=== PATIENT | male | born 1980 | race African-American/Black ===

== ENCOUNTER 2019-03-31 10:10 | Emergency (ER) | payer MEDICAID, SELFPAY ==
[2019-03-31 10:12] VITALS: BP 120/93; PULSE 98; RESP 20; TEMP 36.8; O2SAT 97; BMI 67.1
--- NOTE | 2019-03-31 10:22 | ED.VIS.GEN ---
History of Present Illness Chief Complaint: Eye Problem Informant: Patient Onset: Days Narrative: Patient reports erythema, swelling, itching, and drainage from bilateral eyes. He states that about a week ago he developed rhinorrhea and sneezing. He was having some itchy watery eyes, however over the last several days he has developed the conjunctival injection and swelling of his eyelids. He states the drainage is mostly clear, however he has noted some more purulent aspects. He did have this once about a year ago and states that antihistamines helped to this. He denies any pain with ocular movement. He denies any fever, chills, nausea, vomiting. He denies any changes in vision. Past Medical History - Allergies and Home Meds Allergies/Adverse Reactions: Allergies No Known Allergies Allergy (Verified 03/31/19 10:12) Primary Care Physician: Julieth Doctor,Out of [NON-STAFF] - Smoking Status: Former smoker - Family History Maternal Family History: Reports: Diabetes Review of Systems General: Denies: Chills, Fever, Sweats Eyes: Reports: - - Conjunctival injection, drainage, eyelid swelling.. Denies: Visual changes - bilaterally, Diplopia ENT: Reports: Rhinorrhea, - - Sneezing. Denies: Sore throat Cardiovascular: Denies: Chest pain, Palpitations Respiratory: Denies: Dyspnea, Cough, Dyspnea on exertion Gastrointestinal: Denies: Abdominal pain, Nausea, Vomiting, Diarrhea, Melena, Hematochezia Genitourinary: Denies: Dysuria, Hematuria, Frequency Musculoskeletal: Denies: Back pain, Extremity Pain Skin: Denies: Rash, Wounds Neurological: Denies: Headache, Weakness, Numbness Physical Exam Vital Signs/Narrative: Vital Signs Temp Pulse Resp BP Pulse Ox 03/31/19 10:12 98.2 F 98 20 H 120/93 H 97 General: Well nourished, Well developed, No Acute Distress Head: Normocephalic, Atraumatic Eyes: Perrl, EOMI, - - Edema bilateral upper and lower eyelids. Conjunctival injection. Clear drainage from bilateral eyes with small amount of purulent drainage to the corner of the eyes. Extraocular movement is intact. Patient denies any pain with extraocular movement. ENT: Moist mucous membranes, No rhinorrhea Neck: Supple, Nontender Cardiovascular: Regular rate, Regular rhythm, No murmurs Respiratory: No distress, CTA bilaterally, Chest nontender Abdomen: Soft, Nontender, Nondistended, Normal bowel sounds Back: Nontender, Normal Inspection Extremities: Nontender, No edema Skin: Normal color, No rash Neurological: Alert, Oriented x3, Cranial nerves II-XII grossly intact, Normal Strength, Normal Sensation Psychological: Normal affect, Normal Mood Diagnostic/Tx/Re-eval - Medical Decision Making Patient presents to the ED with eye irritation for the last several days. he has had this in the past. Following history and physical exam, I think the main component of the patient's conjunctivitis is allergic, however given the small amount of purulent drainage I do feel coverage with antibiotic ophthalmic drops would be appropriate. Patient will be prescribed antibiotic ophthalmic drops and Claritin for symptomatic relief. He was educated on signs/symptoms to return to the ED. He was advised to follow-up with his PCP. He was provided discharge instructions and agreeable to plan. Impression: Allergic conjunctivitis. Bacterial conjunctivitis. Disposition: Home stable ED Disposition - Plan for ED Patient: Disposition: Home or Assisted Living Diagnosis: Allergic conjunctivitis, Bacterial conjunctivitis of both eyes Instructions: CONJUNCTIVITIS, Allergic, CONJUNCTIVITIS, Bacterial Prescriptions: Loratadine [Claritin] 10 mg PO DAILY #30 tab Prescription Printed Polymyxin B Sulf/Trimethoprim [Polymyxin B-Tmp Eye Drops] 2 drp EACH EYE 5X/DAY #1 bottle Prescription Printed Referrals: [facility] Doctor,Out of [NON-STAFF] -
== END 2019-03-31 11:05 | disposition home or self-care (01) ==
LOC: ED 10:57
PROVIDERS: Emergency Provider Physician Assistant
DX: H10.13 Acute atopic conjunctivitis, bilateral (principal); H10.89 Other conjunctivitis; Z87.891 Personal history of nicotine dependence
CPT/HCPCS: 99282

== ENCOUNTER 2020-02-05 18:43 | Emergency (ER) | payer MEDICAID, SELFPAY ==
[2020-02-05 18:44] VITALS: BP 152/69; PULSE 113; RESP 30; TEMP 35.9; BMI 78.0
--- NOTE | 2020-02-05 20:19 | ED.VIS.GEN ---
History of Present Illness Chief Complaint: Wound Informant: Patient Onset: Days Context: Sudden Onset Timing: Continuous Quality: Wounds dorsal surface right and left foot with clear drainage Location: Feet Current Severity: Mild Maximum Severity: Mild Worsened by: Lymphedema and scratching Relieved by: Nothing Associated Symptoms: Neuropathy Narrative: Rash that is pruritic and painful with drainage from the top of his feet. The drainage concerned patient. He attempted to do a online medical examination which was unsuccessful. He attempted to be seen at the [facility]. He was instructed to come here because they would not see him. He denies fever, chills night sweats. He denies orthopnea or PND. He denies chest pain. He denies dyspnea on exertion. He does have history of lymphedema. Prior similar symptoms: No Recent Illness/Hospitalization: No - Past Medical History (1) Diabetes Status: Acute (2) Hypertension Status: Acute (3) Morbid obesity Status: Acute (4) Sleep disorder breathing Status: Acute Past Medical History - Allergies and Home Meds Allergies/Adverse Reactions: Allergies No Known Allergies Allergy (Verified 03/31/19 10:12) Primary Care Physician: Care Physician,No Primary [Primary Care Provider] - Prior records reviewed: Yes Surgical History: noncontributory Lives: Alone Smoking Status: Former smoker Alcohol: None Drugs: None - Family History Maternal Family History: Reports: Diabetes Review of Systems General: Denies: Chills, Fever, Sweats Eyes: Denies: Visual changes - bilaterally, Diplopia ENT: Denies: Rhinorrhea, Sore throat Cardiovascular: Denies: Chest pain, Palpitations Respiratory: Denies: Dyspnea, Cough, Dyspnea on exertion Gastrointestinal: Denies: Abdominal pain, Nausea, Vomiting, Diarrhea, Melena, Hematochezia Genitourinary: Denies: Dysuria, Hematuria, Frequency Musculoskeletal: Reports: Neck pain, Back pain, Swelling, Extremity Pain. Denies: Myalgias, Arthralgias Skin: Reports: Rash, - - And has venous stasis dermatitis and areas of excoriation with weepage of serous fluid. There is no erythema, warmth, lymphangitis. There is no popliteal lymphadenopathy. Difficult to assess for inguinal lymphadenopathy. Neurological: Denies: Headache, Weakness, Numbness Hematologic: Denies: Easy bruising, Easy bleeding Allergy: Denies: Uticaria, Swelling of the mouth, Swelling of the tongue Physical Exam Vital Signs/Narrative: Vital Signs Temp Pulse Resp BP 02/05/20 18:44 96.6 F L 113 H 30 H 152/69 H General: Well nourished, Well developed, Obese, No Acute Distress Head: Normocephalic, Atraumatic Eyes: Perrl, EOMI ENT: Moist mucous membranes, No rhinorrhea Neck: Supple, Nontender, No lymphadenopathy, No JVD Cardiovascular: Regular rate, Regular rhythm, No murmurs, Normal S1, Normal S2 Respiratory: No distress, CTA bilaterally, Chest nontender Extremities: Tenderness, Edema Skin: Normal color, Rash. Negative for: Cyanosis, Diaphoresis, Jaundice Neurological: Alert, Oriented x3, Cranial nerves II-XII grossly intact, Normal Strength, Normal Sensation Psychological: Normal affect, Normal Mood Diagnostic/Tx/Re-eval Laboratory Results 02/05/20 02/05/20 20:20 20:20 WBC 10.6 RBC 4.33 L Hgb 13.4 Hct 39.9 L MCV 92.1 MCH 30.9 MCHC 33.6 RDW Std Deviation 51.6 H RDW Coeff of Ashanti 15.3 H Plt Count 263 MPV 9.6 Immature Gran % (Auto) 0.300 Neut % (Auto) 73.8 H Lymph % (Auto) 19.0 [place] % (Auto) 6.0 Eos % (Auto) 0.7 Baso % (Auto) 0.2 Absolute Neuts (auto) 7.8 H Absolute Lymphs (auto) 2.01 Nucleated RBC % 0 Sodium 140 Potassium 3.8 Chloride 106 Carbon Dioxide 28.0 Anion Gap 6 BUN 7 Creatinine 0.83 Estim Creat Clear Calc 128.55 Est GFR (MDRD) Af Amer 132 Est GFR (MDRD) Non-Af 109 BUN/Creatinine Ratio 8.5 L Glucose 172 H Calcium 8.8 White count is normal. Blood sugar is elevated. He is a known diabetic. There is no evidence of DKA. Patient was informed of his test results and discharged home with appropriate home-going instructions. - Medical Decision Making Patient is diabetic basic metabolic panel was obtained to assess blood sugar, renal function and anion gap. CBC was obtained to determine if he has an elevated white count. If white count is normal we will treat for venous stasis dermatitis if white count is significant elevated will treat for possible early cellulitis. ED Disposition - Plan for ED Patient: Disposition: Home or Assisted Living Diagnosis: Lymphedema in adult patient, Psoriasis, Venous stasis dermatitis of both lower extremities, Hyperglycemia due to type 2 diabetes mellitus Instructions: ED Peripheral Edema, Bilateral, ED Psoriasis, ED Diabetic Hyperglycemia Referrals: Care Physician,No Primary [Primary Care Provider] - Additional Instructions: Apply Eucerin cream/lotion 3 times a day to your feet Try not to scratch your feet. Elevation of your feet will reduce the swelling.
[2020-02-05 20:30] LABS: Absolute Lymphocyte Count 2.01 X10^3/uL (0.83-4.51); Absolute Neutrophil Count 7.8 X10^3/uL (2.0-7.7); Basophil# 0.02 X10^3/uL; Basophil% 0.2 % (0-1); Eosinophil# 0.07 X10^3/uL; Eosinophils% 0.7 % (0-5); Hematocrit 39.9 % (40-54); Hemoglobin 13.4 g/dL (13.0-16.5); Lymphocyte # 2.01 X10^3/ul (4.0); Mean Corp Hgb Conc 33.6 g/dL (32-36); Mean Corpuscular Hgb 30.9 pg (27.0-32.0); Mean Corpuscular Volume 92.1 fL (80-94); Mean Platelet Vol. 9.6 fl (6.2-12.0); Monocyte# 0.64 X10^3/uL; NRBC Flagged by Analyzer 0 % (0-5); Neutrophil # 7.83 X10^3/uL (2.7-7.7); Neutrophil % 73.8 % (47-70); Platelet Count 263 K/mm3 (150-450); RBC Distribution Width CV 15.3 % (11.6-14.6); RBC Distribution Width SD 51.6 fl (35.1-43.9); Red Blood Count 4.33 M/mm3 (4.6-6.2); White Blood Count 10.6 K/mm3 (4.4-11.0)
[2020-02-05 20:44] LABS: Anion Gap 6 (5-15); BUN 7 mg/dL (7-18); BUN/Creat Ratio 8.5 RATIO (10-20); Calcium,Total 8.8 mg/dL (8.5-10.1); Chloride 106 mmol/L (98-107); Creatinine, Serum 0.83 mg/dL (0.70-1.30); EST Glomerular Filtration Rate 109 mL/min (>60); Est Glom Filt Rate - Afr Amer 132 mL/min (>60); Estimated Creatinine Clearance 128.55 ml/min; Glucose 172 mg/dL (74-106); Potassium 3.8 mmol/L (3.5-5.1); Sodium Level 140 mmol/L (136-145)
[2020-02-05 21:35] VITALS: BP 163/95; PULSE 98; RESP 24; O2SAT 96
== END 2020-02-05 21:36 | disposition home or self-care (01) ==
PROVIDERS: Emergency Provider Emergency Medicine
DX: I89.0 Lymphedema, not elsewhere classified (principal); L40.9 Psoriasis, unspecified; E11.65 Type 2 diabetes mellitus with hyperglycemia; E66.01 Morbid (severe) obesity due to excess calories; I10 Essential (primary) hypertension; I87.2 Venous insufficiency (chronic) (peripheral); Z87.891 Personal history of nicotine dependence
CPT/HCPCS: 80048; 85025; 99283; A4216

== ENCOUNTER 2020-05-03 09:09 | Observation (INO) | payer MEDICAID, SELFPAY ==
[2020-05-03] VITALS (8 sets, daily range): BP systolic 86–150; BP diastolic 56–93; PULSE 63–105; RESP 16–22; TEMP 36–36.8; O2SAT 93–100; BMI 62.1; BMI 67.9
[2020-05-03 09:41] LABS: Bedside Glucose > 500 mg/dL (70-110)
--- NOTE | 2020-05-03 09:55 | EKG12_ITS ---
Test Reason : WEAKNESS Blood Pressure : / mmHG Vent. Rate : 102 BPM Atrial Rate : 102 BPM P-R Int : 144 ms QRS Dur : 090 ms QT Int : 356 ms P-R-T Axes : 067 084 036 degrees QTc Int : 463 ms Sinus tachycardia Otherwise normal ECG Confirmed by CHECO MCDERMOTT, RAVEN ([id number]), restaurant expeditor RIKY HAZEL ([id number]) on 05/05/2020 11:25:25 AM Referred By: SHAUNA Confirmed By:RAVEN KESSLER MD
--- NOTE | 2020-05-03 09:56 | ED.VIS.GEN ---
History of Present Illness Chief Complaint: Weakness Narrative: Patient is a 39-year-old male who presents with multiple complaints. He complains of fatigue polyuria polydipsia and generalized malaise for the last couple of weeks. He is a diabetic on metformin. He is not on insulin. He ran out of materials for testing his blood sugar at home. He states that he has been very thirsty lately so had drank a case of water. He was still thirsty so drank a gallon of orange juice on another day and then a 2 L of cola on another day. He also complains of nausea and vomiting. No diarrhea. No fever no cough. Past Medical History - Allergies and Home Meds Allergies/Adverse Reactions: Allergies No Known Allergies Allergy (Verified 05/03/20 09:10) Primary Care Physician: [facility] Doctor,Out of [NON-STAFF] - Past Medical History: - - Morbid obesity, diabetes, hypertension, hyperlipidemia Surgical History: noncontributory Smoking Status: Current some day smoker - Family History Maternal Family History: Reports: Diabetes Review of Systems All systems negative except as indicated General: Denies: Fever Eyes: Reports: Diplopia ENT: Denies: Bilateral ear pain Cardiovascular: Denies: Chest pain Respiratory: Denies: Dyspnea Gastrointestinal: Reports: Nausea, Vomiting. Denies: Abdominal pain Musculoskeletal: Denies: Myalgias, Arthralgias Skin: Denies: Rash Neurological: Denies: Headache Endocrine: Reports: Polyuria, Polydipsia Hematologic: Denies: Easy bruising Allergy: Denies: Uticaria Physical Exam Vital Signs/Narrative: Vital Signs Temp Pulse Resp BP Pulse Ox 05/03/20 09:35 105 H 22 H 96 05/03/20 09:11 96.8 F L 105 H 17 143/75 H 94 Inital Vital Signs reviewed: Yes General: Well nourished Head: Normocephalic Eyes: EOMI ENT: Moist mucous membranes Neck: Supple Cardiovascular: Regular rhythm, Tachycardia Respiratory: No distress, CTA bilaterally Abdomen: Soft, Nontender, Nondistended Skin: Normal color Neurological: Alert Psychological: Normal affect Diagnostic/Tx/Re-eval Laboratory Results 05/03/20 05/03/20 05/03/20 09:20 09:35 09:35 WBC 14.3 H RBC 4.99 Hgb 15.4 Hct 43.9 MCV 88.0 MCH 30.9 MCHC 35.1 RDW Std Deviation 41.3 RDW Coeff of Ashanti 13.2 Plt Count 264 MPV 12.2 H Immature Gran % (Auto) 0.400 Neut % (Auto) 71.4 H Lymph % (Auto) 18.0 L [place] % (Auto) 9.3 Eos % (Auto) 0.6 Baso % (Auto) 0.3 Absolute Neuts (auto) 10.2 H Absolute Lymphs (auto) 2.56 Nucleated RBC % 0 Specimen Type Sample Site pH Bicarbonate Actual Total CO2 Base Excess O2 Saturation ABG pCO2 ABG pO2 Eran Test O2 Delivery Device Sodium 124 L Potassium 5.0 Chloride 85 L Carbon Dioxide 26.0 Anion Gap 13 BUN 22 H Creatinine 1.53 H Estim Creat Clear Calc 69.74 Est GFR (MDRD) Af Amer 65 Est GFR (MDRD) Non-Af 53 L BUN/Creatinine Ratio 14.4 Glucose 742 H* Calcium 9.6 Total Bilirubin 0.40 Direct Bilirubin 0.15 AST 12 L ALT 30 Alkaline Phosphatase 140 H Total Protein 8.4 H Albumin 3.1 L Globulin 5.3 H Albumin/Globulin Ratio 0.6 L Lipase 111 Urine Color Urine Clarity Urine pH Ur Specific [place] Urine Protein Urine Glucose (UA) Urine Ketones Urine Occult Blood Urine Nitrite Urine Bilirubin Urine Urobilinogen Ur Leukocyte Esterase Urine RBC Urine WBC Ur Squamous Epith Cells Urine Bacteria Urine Mucus Acetone Level POC Glucose > 500 H* 05/03/20 05/03/20 05/03/20 09:35 09:35 09:35 WBC RBC Hgb Hct MCV MCH MCHC RDW Std Deviation RDW Coeff of Ashanti Plt Count MPV Immature Gran % (Auto) Neut % (Auto) Lymph % (Auto) [place] % (Auto) Eos % (Auto) Baso % (Auto) Absolute Neuts (auto) Absolute Lymphs (auto) Nucleated RBC % Specimen Type Sample Site pH Bicarbonate Actual Total CO2 Base Excess O2 Saturation ABG pCO2 ABG pO2 Eran Test O2 Delivery Device Sodium Potassium Chloride Carbon Dioxide Anion Gap BUN Creatinine Estim Creat Clear Calc Est GFR (MDRD) Af Amer Est GFR (MDRD) Non-Af BUN/Creatinine Ratio Glucose Calcium Total Bilirubin Cancelled Direct Bilirubin Cancelled AST Cancelled ALT Cancelled Alkaline Phosphatase Cancelled Total Protein Cancelled Albumin Cancelled Globulin Cancelled Albumin/Globulin Ratio Lipase Cancelled Urine Color Urine Clarity Urine pH Ur Specific [place] Urine Protein Urine Glucose (UA) Urine Ketones Urine Occult Blood Urine Nitrite Urine Bilirubin Urine Urobilinogen Ur Leukocyte Esterase Urine RBC Urine WBC Ur Squamous Epith Cells Urine Bacteria Urine Mucus Acetone Level NEGATIVE POC Glucose 05/03/20 05/03/20 11:10 11:10 WBC RBC Hgb Hct MCV MCH MCHC RDW Std Deviation RDW Coeff of Ashanti Plt Count MPV Immature Gran % (Auto) Neut % (Auto) Lymph % (Auto) [place] % (Auto) Eos % (Auto) Baso % (Auto) Absolute Neuts (auto) Absolute Lymphs (auto) Nucleated RBC % Specimen Type ART Sample Site R Radial pH 7.47 H Bicarbonate Actual 25.2 Total CO2 26 Base Excess 1 O2 Saturation 99 ABG pCO2 35.0 ABG pO2 113 H Eran Test Positive O2 Delivery Device Room Air Sodium Potassium Chloride Carbon Dioxide Anion Gap BUN Creatinine Estim Creat Clear Calc Est GFR (MDRD) Af Amer Est GFR (MDRD) Non-Af BUN/Creatinine Ratio Glucose Calcium Total Bilirubin Direct Bilirubin AST ALT Alkaline Phosphatase Total Protein Albumin Globulin Albumin/Globulin Ratio Lipase Urine Color Yellow Urine Clarity Clear Urine pH 5.0 Ur Specific [place] 1.010 Urine Protein Negative Urine Glucose (UA) 1000 H Urine Ketones Negative Urine Occult Blood Negative Urine Nitrite Negative Urine Bilirubin Negative Urine Urobilinogen Normal Ur Leukocyte Esterase Negative Urine RBC 0 SEEN Urine WBC 0 SEEN Ur Squamous Epith Cells 0 SEEN Urine Bacteria 0 SEEN Urine Mucus 0 SEEN Acetone Level POC Glucose - Medical Decision Making EKG shows sinus tachycardia at a rate of 102. Patient was treated with IV fluids. Laboratory evaluation as above notable for severe hyperglycemia however pH anion gap are normal. Serum acetone is negative. He does have an acute kidney injury. He was given IV fluids and subcutaneous insulin discussed with the hospitalist and admitted. ED Disposition - Plan for ED Patient: Disposition: Acute Care Hospital [facility] Diagnosis: Hyperglycemia, MOISES (acute kidney injury) Referrals: [facility] Doctor,Out of [NON-STAFF] -
[2020-05-03 10:11] LABS: Absolute Lymphocyte Count 2.56 X10^3/uL (0.83-4.51); Absolute Neutrophil Count 10.2 X10^3/uL (2.0-7.7); Basophil# 0.04 X10^3/uL; Basophil% 0.3 % (0-1); Eosinophil# 0.08 X10^3/uL; Eosinophils% 0.6 % (0-5); Hematocrit 43.9 % (40-54); Hemoglobin 15.4 g/dL (13.0-16.5); Lymphocyte # 2.56 X10^3/ul (4.0); Mean Corp Hgb Conc 35.1 g/dL (32-36); Mean Corpuscular Hgb 30.9 pg (27.0-32.0); Mean Platelet Vol. 12.2 fl (6.2-12.0); Monocyte# 1.33 X10^3/uL; Monocyte% 9.3 % (0-10); NRBC Flagged by Analyzer 0 % (0-5); Neutrophil # 10.19 X10^3/uL (2.7-7.7); Neutrophil % 71.4 % (47-70); Platelet Count 264 K/mm3 (150-450); RBC Distribution Width CV 13.2 % (11.6-14.6); RBC Distribution Width SD 41.3 fl (35.1-43.9); Red Blood Count 4.99 M/mm3 (4.6-6.2); White Blood Count 14.3 K/mm3 (4.4-11.0)
[2020-05-03] MEDS: Ondansetron 4 MG/2 ML Vial IV (10:15)
[2020-05-03] MEDS: 0.9% Normal Saline 1,000 ML 999 ML IV ×2 (10:17→11:16)
[2020-05-03 10:28] LABS: ALB/GLOB Ratio 0.6 RATIO (0.9-2.4); AST(SGOT) 12 U/L (15-37); Alanine Aminotransfer ALT/SGPT 30 U/L (16-61); Albumin, Serum 3.1 g/dL (3.2-5.0); Alkaline Phosphatase 140 U/L (45-117); Anion Gap 13 (5-15); BUN 22 mg/dL (7-18); BUN/Creat Ratio 14.4 RATIO (10-20); Calcium,Total 9.6 mg/dL (8.5-10.1); Chloride 85 mmol/L (98-107); Creatinine, Serum 1.53 mg/dL (0.70-1.30); EST Glomerular Filtration Rate 53 mL/min (>60); Est Glom Filt Rate - Afr Amer 65 mL/min (>60); Estimated Creatinine Clearance 69.74 ml/min; Globulin 5.3 g/dL (2.2-4.2); Glucose 742 mg/dL (74-106); Lipase 111 U/L (73-393); Protein, Total 8.4 g/dL (6.4-8.2); Sodium Level 124 mmol/L (136-145)
[2020-05-03 11:13] LABS: Bilirubin, Direct 0.15 mg/dL (0.00-0.30)
[2020-05-03 11:16] LABS: Allen Test Positive; Base Excess 1 mmol/L (-2 to +2); Bicarbonate 25.2 mmol/L (22-26); Blood Gas Specimen Type ART; O2 Delivery Device Room Air; PO2 113 mmHG (75-100); SITE R Radial; SO2 99 % (95-99); Total Carbon Dioxide 26 mmol/L; pH 7.47 (7.35-7.45)
[2020-05-03 11:17] LABS: Bacteria 0 SEEN /hpf (None Seen); Mucous, Urine 0 SEEN /hpf (<or=2+); Red Blood Cells-Urine 0 SEEN /hpf (0-5); Squamous Epithelial Cells - UA 0 SEEN /hpf (0-5); White Blood Cells 0 SEEN /hpf (0-5)
[2020-05-03] MEDS: Insulin Lispro 100 UNIT/ML INSULN.PEN 14 UNIT SC (11:20)
[2020-05-03 11:21] LABS: Color, Urine Yellow (Yellow); Glucose, Dipstick 1000 mg/dl (Normal); Ketone-Dipstick Negative (Negative); Leukocyte Esterase-Dipstick Negative /ul (Negative); Nitrite-Dipstick Negative (Negative); Occult Blood-Urine Negative /ul (Negative); Protein-Dipstick Negative (Negative); Urine Bilirubin Dipstick Negative (Negative); Urine Clarity Clear (Clear); Urine Urobilinogen Normal (Normal)
[2020-05-03 14:00] LABS: Hemoglobin A1c 11.2 % (3.8-5.6)
--- NOTE | 2020-05-03 14:13 | PCM.HP.STD ---
<Bipin German - Last Filed: 05/03/20 14:13> Problem List (1) Diabetes Status: Acute Qualifiers: Diabetes mellitus type: type 2 Diabetes mellitus complication status: with hyperglycemia (2) MOISES (acute kidney injury) Status: Acute (3) Sleep disorder breathing Status: Chronic (4) Hypertension Status: Chronic (5) Morbid obesity Status: Chronic History of Present Illness Date of Admission: 05/03/20 Chief Complaint: thirst The patient is a 39 year old M with pmhx of Dmt2, morbid obesity, htn, hld, sleep disordered breathing, prior smoker, who presented to the ER with c/o severe thirst and found to have severe hyperglycemia and MOISES. The patient has not been taking his home metformin or glyburide for unclear reasons stating it had something to do with not being able to figure out how to have a video visit with his prescribing doctor. At one point he said he was off these for 2 weeks, at another point he said it has been 4 months. He has not checked his sugar in about 2.5 weeks. He states he does not have the right strips for his glucometer. He started feeling generalized malaise about 2.5 weeks ago after a night of heavy drinking. He became intoxicated following a friends , tho he denies daily alcohol use. He then developed severe thirst that has progresively worsening. In the past two days he has drank a case of water, a gallon of milk, a gallon of juice, in an attempt to help with his thirst. He thought his sugar might be low so he drank multiple sodas to see if it would help. He has had some nausea and vomiting today. He came to the ER and was found to have a glucose of 742 however has normal gap and negative acetone. No breathing issues at this time. [] Past Medical History Past Medical History (Chronic Problems): Chronic Problems Sleep disorder breathing (Chronic) Hypertension (Chronic) Morbid obesity (Chronic) Allergies No Known Allergies Allergy (Verified 05/03/20 09:10) Home Medications: Ambulatory Orders Medication Instructions Recorded Lisinopril [Zestril] 20 mg PO DAILY #90 tablet 04/17/16 glyBURIDE [Micronase] 5 mg PO BIDCM #90 tablet 04/17/16 Loratadine [Claritin] 10 mg PO DAILY #30 tab 03/31/19 Atorvastatin Calcium [Lipitor] 20 mg PO QHS 05/03/20 Metformin HCl 1,000 mg PO BID 05/03/20 Surgical History: - - shoulder surgery Psychiatric History: No pertinent psych hx Lives: With Family Smoking Status: Former smoker Tobacco Use: Non-smoker Alcohol: Occasional Drugs: None - *Family History Maternal History Items: Diabetes, - - thyroid Paternal History Items: Hypertension Review of Systems Constitutional: Reports: Malaise, Fatigue. Denies: Chills, Fever, Weight Change HEENT: Denies: Hard of Hearing, Head Aches, Sinus Congestion, Sinus Drainage Cardiovascular: Denies: Chest Pain, Heaviness, Palpitations Respiratory: Denies: Cough, Shortness of Breath, Shortness of breath at rest, Sputum production Gastrointestinal: Reports: Nausea, Vomiting. Denies: Abdominal Pain, Diarrhea Genitourinary: Denies: Dysuria, Hesitancy, Urgency Musculoskeletal: Denies: Joint Pain, Joint Tenderness Skin: Denies: Lesions, Rash, Wounds Neurological: Denies: Numbness, Tingling, Focal weakness Psychiatric: Denies: Anxiety, Depression, Homicidal Ideations, Suicidal Ideations Hematologic/ Lymphatic: Denies: Easy Bruising, Easy Bleeding VTE Information - Inpt Only VTE Present on Admission: No VTE Mechan Device Prophylaxis: None VTE Pharm Prophylaxis ordered?: Yes Patient Problems: Active and Suspected Problems Hyperglycemia (Acute) MOISES (acute kidney injury) (Acute) Diabetes (Acute) - Physical Exam Vitals/I&O's: Vital Signs Temp Pulse Resp BP Pulse Ox 97.8 F 100 18 86/56 L 93 05/03/20 13:08 05/03/20 13:40 05/03/20 13:08 05/03/20 13:08 05/03/20 13:08 Oxygen Delivery Method Room Air Weight: 500 lb 14.244 oz Body Mass Index (BMI) 67.9 Finger Stick Blood Glucose 214 Intake and Output for Last 24 Hours 05/01/20 05/02/20 05/03/20 23:59 23:59 22:59 Intake Total 1999 Balance 1999 General: Alert, Oriented x3, Cooperative HEENT: Atraumatic, PERRLA, EOMI, Normocephalic Neck: Supple, No JVD, Negative Carotid Bruits Lungs: Clear to auscultation, Normal air movement Cardiovascular: Regular rate, No murmurs Abdomen: Bowel Sounds Present, Soft, Non Tender, Obese Extremities: No edema, Capillary Refill Less than 3 Seconds Skin: No rashes, No breakdown Musculoskeletal: No Tenderness to Palpation of Joints or Extremities Neurological: Cranial nerves II-XII grossly intact Psych/Mental Status: Normal Affect, Appropriate Laboratory Results 05/03/20 09:20: POC Glucose > 500 H* 05/03/20 09:35: WBC 14.3 H, RBC 4.99, Hgb 15.4, Hct 43.9, MCV 88.0, MCH 30.9, MCHC 35.1, RDW Std Deviation 41.3, RDW Coeff of Ashanti 13.2, Plt Count 264, MPV 12.2 H, Immature Gran % (Auto) 0.400, Neut % (Auto) 71.4 H, Lymph % (Auto) 18.0 L, Door % (Auto) 9.3, Eos % (Auto) 0.6, Baso % (Auto) 0.3, Absolute Neuts (auto) 10.2 H, Absolute Lymphs (auto) 2.56, Nucleated RBC % 0 05/03/20 09:35: Sodium 124 L, Potassium 5.0, Chloride 85 L, Carbon Dioxide 26.0, Anion Gap 13, BUN 22 H, Creatinine 1.53 H, Estim Creat Clear Calc 69.74, Est GFR (MDRD) Af Amer 65, Est GFR (MDRD) Non-Af 53 L, BUN/Creatinine Ratio 14.4, Glucose 742 H*, Calcium 9.6, Total Bilirubin 0.40, Direct Bilirubin 0.15, AST 12 L, ALT 30, Alkaline Phosphatase 140 H, Total Protein 8.4 H, Albumin 3.1 L, Globulin 5.3 H, Albumin/Globulin Ratio 0.6 L, Lipase 111 05/03/20 09:35: Acetone Level NEGATIVE 05/03/20 09:35: Total Bilirubin Cancelled, Direct Bilirubin Cancelled, AST Cancelled, ALT Cancelled, Alkaline Phosphatase Cancelled, Total Protein Cancelled, Albumin Cancelled, Globulin Cancelled 05/03/20 09:35: Lipase Cancelled 05/03/20 09:35: Hemoglobin A1c 11.2 H 05/03/20 11:10: Urine Color Yellow, Urine Clarity Clear, Urine pH 5.0, Ur Specific [place] 1.010, Urine Protein Negative, Urine Glucose (UA) 1000 H, Urine Ketones Negative, Urine Occult Blood Negative, Urine Nitrite Negative, Urine Bilirubin Negative, Urine Urobilinogen Normal, Ur Leukocyte Esterase Negative, Urine RBC 0 SEEN, Urine WBC 0 SEEN, Ur Squamous Epith Cells 0 SEEN, Urine Bacteria 0 SEEN, Urine Mucus 0 SEEN 05/03/20 11:10: Specimen Type ART, Sample Site R Radial, pH 7.47 H, Bicarbonate Actual 25.2, Total CO2 26, Base Excess 1, O2 Saturation 99, ABG pCO2 35.0, ABG pO2 113 H, Eran Test Positive, O2 Delivery Device Room Air Current Medications Dextrose (Dextrose 50%-Water 25 Gm/50 Ml Disp.Syrin) 0 gm IV X1 PRN; Protocol PRN Reason: Hypoglycemia Enoxaparin Sodium (Enoxaparin 40 Mg/0.4 Ml Syringe) 40 mg SC DAILY PRATIBHA Glucagon (Glucagon 1 Mg/Ml Syringe) 1 mg IM .X1 PRN PRN Reason: Hypoglycemia Sodium Chloride () 1,000 mls @ 150 mls/hr IV .Q6H40M PRATIBHA Sodium Chloride () 250 mls @ 15 mls/hr IV .[id number] PRN PRN Reason: Saline Flush Influenza Virus Vaccine Quadrival (Influenza Vaccine (6mos+)/Pf 0.5 Ml Syringe) 0.5 ml IM .ONCE ONE Stop: 05/04/20 10:01 Insulin Glargine (Insulin Glargine 100 Units/Ml Pen) 10 units SC QHS PRAT[facility] Insulin Human Lispro (Insulin Lispro 100 Unit/Ml Insuln.Pen) 5 unit SC BREAKFAST PRATIBHA Insulin Human Lispro (Insulin Lispro 100 Unit/Ml Insuln.Pen) 5 unit SC DINNER PRAT[facility] Insulin Human Lispro (Insulin Lispro 100 Unit/Ml Insuln.Pen) 5 unit SC LUNCH PRAT[facility] Insulin Human Lispro (Insulin Lispro 100 Unit/Ml Insuln.Pen) 0 unit SC ACHS PRATIB[facility]; Protocol Nutritional Formula (Lactose Free) (Glucerna Shake 120 Ml Liquid) 120 ml PO TIDCM PRATIBHA Ondansetron HCl (Ondansetron 4 Mg/2 Ml Vial) 4 mg IV Q8H PRN PRN PRN Reason: NAUSEA/VOMITING Sodium Chloride (0.9% Saline Lock 10 Ml Syringe) 10 - 40 ml IV UD PRN PRN Reason: SALINE FLUSH Assessment/Plan All Active Problems Hyperglycemia (Acute) MOISES (acute kidney injury) (Acute) Hyperosmolar hyperglycemic state (HHS) (Acute) Diabetes (Acute) 1. T2 DM with severe hyperglycemia - negative acetone, normal gap. No DKA at this time. pt has been off his home meds for an unclear amount of time. start lantus and TID mealtime insulin. out of test strips, has not tested recently. will need refills at dc. Large glucose in urine, no proteinuria. Hyponatremia probably pseudohyponatremia. 2. MOISES 2/2 above - severe dehydration complicated by nausea/vomiting. aggressive IV fluids overnight, recheck BMP in AM. Hold STACY. 3. HTN - hold stacy for MOISES. BP low at admission so will defer further treatment until pressure stabilizes. 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 HLD - statin DVT ppx: lovenox This patient was seen by Bipin German PA-C under the supervision of Dr. Peres. <Roman Peres F - Last Filed: 05/03/20 16:55> History of Present Illness The patient is a 39 year old M [] Past Medical History Allergies No Known Allergies Allergy (Verified 05/03/20 09:10) - Physical Exam Vitals/I&O's: Vital Signs Temp Pulse Resp BP Pulse Ox 98.2 F 94 18 150/93 H 95 05/03/20 15:00 05/03/20 15:00 05/03/20 15:00 05/03/20 15:00 05/03/20 15:00 Oxygen Delivery Method Room Air Weight: 500 lb 14.244 oz Body Mass Index (BMI) 67.9 Finger Stick Blood Glucose 214 Intake and Output for Last 24 Hours 05/01/20 05/02/20 05/03/20 23:59 23:59 22:59 Intake Total 1999 Balance 1999 Laboratory Results 05/03/20 09:20: POC Glucose > 500 H* 05/03/20 09:35: WBC 14.3 H, RBC 4.99, Hgb 15.4, Hct 43.9, MCV 88.0, MCH 30.9, MCHC 35.1, RDW Std Deviation 41.3, RDW Coeff of Ashanti 13.2, Plt Count 264, MPV 12.2 H, Immature Gran % (Auto) 0.400, Neut % (Auto) 71.4 H, Lymph % (Auto) 18.0 L, Door % (Auto) 9.3, Eos % (Auto) 0.6, Baso % (Auto) 0.3, Absolute Neuts (auto) 10.2 H, Absolute Lymphs (auto) 2.56, Nucleated RBC % 0 05/03/20 09:35: Sodium 124 L, Potassium 5.0, Chloride 85 L, Carbon Dioxide 26.0, Anion Gap 13, BUN 22 H, Creatinine 1.53 H, Estim Creat Clear Calc 69.74, Est GFR (MDRD) Af Amer 65, Est GFR (MDRD) Non-Af 53 L, BUN/Creatinine Ratio 14.4, Glucose 742 H*, Calcium 9.6, Total Bilirubin 0.40, Direct Bilirubin 0.15, AST 12 L, ALT 30, Alkaline Phosphatase 140 H, Total Protein 8.4 H, Albumin 3.1 L, Globulin 5.3 H, Albumin/Globulin Ratio 0.6 L, Lipase 111 05/03/20 09:35: Acetone Level NEGATIVE 05/03/20 09:35: Total Bilirubin Cancelled, Direct Bilirubin Cancelled, AST Cancelled, ALT Cancelled, Alkaline Phosphatase Cancelled, Total Protein Cancelled, Albumin Cancelled, Globulin Cancelled 05/03/20 09:35: Lipase Cancelled 05/03/20 09:35: Hemoglobin A1c 11.2 H 05/03/20 11:10: Urine Color Yellow, Urine Clarity Clear, Urine pH 5.0, Ur Specific [place] 1.010, Urine Protein Negative, Urine Glucose (UA) 1000 H, Urine Ketones Negative, Urine Occult Blood Negative, Urine Nitrite Negative, Urine Bilirubin Negative, Urine Urobilinogen Normal, Ur Leukocyte Esterase Negative, Urine RBC 0 SEEN, Urine WBC 0 SEEN, Ur Squamous Epith Cells 0 SEEN, Urine Bacteria 0 SEEN, Urine Mucus 0 SEEN 05/03/20 11:10: Specimen Type ART, Sample Site R Radial, pH 7.47 H, Bicarbonate Actual 25.2, Total CO2 26, Base Excess 1, O2 Saturation 99, ABG pCO2 35.0, ABG pO2 113 H, Eran Test Positive, O2 Delivery Device Room Air Current Medications Dextrose (Dextrose 50%-Water 25 Gm/50 Ml Disp.Syrin) 0 gm IV X1 PRN; Protocol PRN Reason: Hypoglycemia Enoxaparin Sodium (Enoxaparin 40 Mg/0.4 Ml Syringe) 40 mg SC DAILY PRATIBHA Glucagon (Glucagon 1 Mg/Ml Syringe) 1 mg IM .X1 PRN PRN Reason: Hypoglycemia Sodium Chloride () 1,000 mls @ 150 mls/hr IV .Q6H40M [facility] Last Admin: 05/03/20 15:04 Dose: 150 mls/hr Documented by: Sodium Chloride () 250 mls @ 15 mls/hr IV .[id number] PRN PRN Reason: Saline Flush Influenza Virus Vaccine Quadrival (Influenza Vaccine (6mos+)/Pf 0.5 Ml Syringe) 0.5 ml IM .ONCE ONE Stop: 05/04/20 10:01 Insulin Glargine (Insulin Glargine 100 Units/Ml Pen) 10 units SC QHS PRAT[facility] Insulin Human Lispro (Insulin Lispro 100 Unit/Ml Insuln.Pen) 5 unit SC BREAKFAST PRATIBHA Insulin Human Lispro (Insulin Lispro 100 Unit/Ml Insuln.Pen) 5 unit SC DINNER PRAT[facility] Insulin Human Lispro (Insulin Lispro 100 Unit/Ml Insuln.Pen) 5 unit SC LUNCH PRATIB[facility] Insulin Human Lispro (Insulin Lispro 100 Unit/Ml Insuln.Pen) 0 unit SC ACHS PRATIBHA; Protocol Nutritional Formula (Lactose Free) (Glucerna Shake 120 Ml Liquid) 120 ml PO TIDCM PRATIBHA Ondansetron HCl (Ondansetron 4 Mg/2 Ml Vial) 4 mg IV Q8H PRN PRN PRN Reason: NAUSEA/VOMITING Sodium Chloride (0.9% Saline Lock 10 Ml Syringe) 10 - 40 ml IV UD PRN PRN Reason: SALINE FLUSH Addendum: Dr. Peres I personally examined the patient and reviewed the chart. I agree with the above. 39-year-old super morbidly obese male presenting to the hospital with weakness. He states that he was at a friend's and got drunk. The next day he was hung over and started drinking a lot of water but did not have much of an appetite he continued to be very thirsty and kept drinking water and still did not have much of an appetite and then he got a little bit dizzy and weak and thought that maybe his blood sugar was dropping because of his lack of p.o. intake and so he drank 2 gallons of orange juice with a gallon of milk some apple juice and then a 2 L soda thinking that his blood sugar was low. He felt like he got worse and so he presented to the hospital. In the hospital his blood sugar was over 700 no gap with no ketones. He was given 2 L of IV fluid in the ER and transferred upstairs where he was given IV fluids as well as insulin. We will provide him with a dietitian for education and he will need another glucometer on discharge as he says he threw his other one away and his last blood sugar that he took a month ago was around 290. His A1c on admission is 11.2. OBSV E&M: [id number] Initial observation care L3
[2020-05-03] MEDS: 0.9% Normal Saline 1,000 ML 150 ML IV ×2 (15:04→22:58)
[2020-05-03] MEDS: Insulin Lispro 100 UNIT/ML INSULN.PEN 15 UNIT SC ×2 (17:00→18:05)
[2020-05-03] MEDS: Glucerna Shake 120 ML LIQUID PO (17:01)
[2020-05-03] MEDS: Insulin Lispro 100 UNIT/ML INSULN.PEN SC (17:01)
[2020-05-03 17:10] LABS: Bedside Glucose > 500 mg/dL (70-110)
[2020-05-03 17:46] LABS: Bedside Glucose > 500 mg/dL (70-110)
[2020-05-03] MEDS: Insulin Lispro 100 UNIT/ML INSULN.PEN 17 UNIT SC (23:07)
[2020-05-04 00:56] LABS: Bedside Glucose 461 mg/dL (70-110)
[2020-05-04] MEDS: 0.9% Normal Saline 1,000 ML 150 ML IV ×4 (03:52→23:09)
[2020-05-04 03:56] VITALS: BP 121/70; PULSE 87; RESP 20; TEMP 36.4; O2SAT 99
[2020-05-04 05:53] LABS: Absolute Lymphocyte Count 2.15 X10^3/uL (0.83-4.51); Absolute Neutrophil Count 6.1 X10^3/uL (2.0-7.7); Basophil# 0.02 X10^3/uL; Basophil% 0.2 % (0-1); Eosinophil# 0.07 X10^3/uL; Eosinophils% 0.8 % (0-5); Hematocrit 41.5 % (40-54); Hemoglobin 14.2 g/dL (13.0-16.5); Lymphocyte # 2.15 X10^3/ul (4.0); Lymphocyte % 23.8 % (19-41); Mean Corp Hgb Conc 34.2 g/dL (32-36); Mean Corpuscular Hgb 30.3 pg (27.0-32.0); Mean Corpuscular Volume 88.5 fL (80-94); Mean Platelet Vol. 11.7 fl (6.2-12.0); Monocyte# 0.65 X10^3/uL; Monocyte% 7.2 % (0-10); NRBC Flagged by Analyzer 0 % (0-5); Neutrophil # 6.13 X10^3/uL (2.7-7.7); Neutrophil % 67.7 % (47-70); Platelet Count 221 K/mm3 (150-450); RBC Distribution Width CV 13.1 % (11.6-14.6); RBC Distribution Width SD 41.9 fl (35.1-43.9); Red Blood Count 4.69 M/mm3 (4.6-6.2); White Blood Count 9.1 K/mm3 (4.4-11.0)
[2020-05-04 06:13] LABS: Anion Gap 6 (5-15); BUN 13 mg/dL (7-18); BUN/Creat Ratio 12.9 RATIO (10-20); Calcium,Total 8.5 mg/dL (8.5-10.1); Chloride 97 mmol/L (98-107); Creatinine, Serum 1.01 mg/dL (0.70-1.30); EST Glomerular Filtration Rate 86 mL/min (>60); Est Glom Filt Rate - Afr Amer 104 mL/min (>60); Estimated Creatinine Clearance 105.64 ml/min; Glucose 384 mg/dL (74-106); Potassium 4.2 mmol/L (3.5-5.1); Sodium Level 131 mmol/L (136-145)
[2020-05-04] MEDS: Insulin Lispro 100 UNIT/ML INSULN.PEN SC ×4 (07:24→16:41)
[2020-05-04 07:30] LABS: Bedside Glucose 398 mg/dL (70-110)
--- NOTE | 2020-05-04 08:30 | PCM.PN.HOSP ---
Patient Problems: Active and Suspected Problems Hyperglycemia (Acute) MOISES (acute kidney injury) (Acute) Diabetes (Acute) Reason for Visit: Hyperglycemia Hyponatremia Subjective: Patient is a 39-year-old male admitted with markedly elevated glucose levels Blood glucose still remains markedly elevated sodium levels still low at 131 Objective: GENERAL: cooperative HEENT: Atraumatic; EYES; Anicteric, Normal Conjunctiva NECK; supple, normal thyroid, RESPIRATORY: Diminished to auscultation CARDIOVASCULAR: Regular S1 S2, GI: soft, normoactive bowel sounds, : No Renal angle tenderness; EXTREMITIES: No edema, no clubbing, MUSCULOSKELETAL: no muscle waisting NEURO: Awake; no lateralizing signs. SKIN: No Rash PSYCH; Flat affect Vitals/I&O's: Vital Signs Temp Pulse Resp BP Pulse Ox 97.5 F L 87 20 H 121/70 H 99 05/04/20 03:56 05/04/20 03:56 05/04/20 03:56 05/04/20 03:56 05/04/20 03:56 Oxygen Delivery Method Room Air Weight: 227.2 kg Body Mass Index (BMI) 67.9 Finger Stick Blood Glucose 214 Intake and Output for Last 24 Hours 05/03/20 05/03/20 05/04/20 00:59 23:59 23:59 Intake Total 1535 / 1535 Output Total 700 / 700 Balance 835 / 835 Laboratory Results 05/03/20 09:20: POC Glucose > 500 H* 05/03/20 09:35: WBC 14.3 H, RBC 4.99, Hgb 15.4, Hct 43.9, MCV 88.0, MCH 30.9, MCHC 35.1, RDW Std Deviation 41.3, RDW Coeff of Ashanti 13.2, Plt Count 264, MPV 12.2 H, Immature Gran % (Auto) 0.400, Neut % (Auto) 71.4 H, Lymph % (Auto) 18.0 L, [place] % (Auto) 9.3, Eos % (Auto) 0.6, Baso % (Auto) 0.3, Absolute Neuts (auto) 10.2 H, Absolute Lymphs (auto) 2.56, Nucleated RBC % 0 05/03/20 09:35: Sodium 124 L, Potassium 5.0, Chloride 85 L, Carbon Dioxide 26.0, Anion Gap 13, BUN 22 H, Creatinine 1.53 H, Estim Creat Clear Calc 69.74, Est GFR (MDRD) Af Amer 65, Est GFR (MDRD) Non-Af 53 L, BUN/Creatinine Ratio 14.4, Glucose 742 H*, Calcium 9.6, Total Bilirubin 0.40, Direct Bilirubin 0.15, AST 12 L, ALT 30, Alkaline Phosphatase 140 H, Total Protein 8.4 H, Albumin 3.1 L, Globulin 5.3 H, Albumin/Globulin Ratio 0.6 L, Lipase 111 05/03/20 09:35: Acetone Level NEGATIVE 05/03/20 09:35: Total Bilirubin Cancelled, Direct Bilirubin Cancelled, AST Cancelled, ALT Cancelled, Alkaline Phosphatase Cancelled, Total Protein Cancelled, Albumin Cancelled, Globulin Cancelled 05/03/20 09:35: Lipase Cancelled 05/03/20 09:35: Hemoglobin A1c 11.2 H 05/03/20 11:10: Urine Color Yellow, Urine Clarity Clear, Urine pH 5.0, Ur Specific [place] 1.010, Urine Protein Negative, Urine Glucose (UA) 1000 H, Urine Ketones Negative, Urine Occult Blood Negative, Urine Nitrite Negative, Urine Bilirubin Negative, Urine Urobilinogen Normal, Ur Leukocyte Esterase Negative, Urine RBC 0 SEEN, Urine WBC 0 SEEN, Ur Squamous Epith Cells 0 SEEN, Urine Bacteria 0 SEEN, Urine Mucus 0 SEEN 05/03/20 11:10: Specimen Type ART, Sample Site R Radial, pH 7.47 H, Bicarbonate Actual 25.2, Total CO2 26, Base Excess 1, O2 Saturation 99, ABG pCO2 35.0, ABG pO2 113 H, Eran Test Positive, O2 Delivery Device Room Air 05/03/20 16:45: POC Glucose > 500 H* 05/03/20 17:40: POC Glucose > 500 H* 05/03/20 22:36: POC Glucose 461 H* 05/04/20 05:15: WBC 9.1, RBC 4.69, Hgb 14.2, Hct 41.5, MCV 88.5, MCH 30.3, MCHC 34.2, RDW Std Deviation 41.9, RDW Coeff of Ashanti 13.1, Plt Count 221, MPV 11.7, Immature Gran % (Auto) 0.300, Neut % (Auto) 67.7, Lymph % (Auto) 23.8, [place] % (Auto) 7.2, Eos % (Auto) 0.8, Baso % (Auto) 0.2, Absolute Neuts (auto) 6.1, Absolute Lymphs (auto) 2.15, Nucleated RBC % 0 05/04/20 05:15: Sodium 131 L, Potassium 4.2, Chloride 97 L, Carbon Dioxide 28.0, Anion Gap 6, BUN 13, Creatinine 1.01, Estim Creat Clear Calc 105.64, Est GFR (MDRD) Af Amer 104, Est GFR (MDRD) Non-Af 86, BUN/Creatinine Ratio 12.9, Glucose 384 H, Calcium 8.5 05/04/20 07:22: POC Glucose 398 H Current Medications Dextrose (Dextrose 50%-Water 25 Gm/50 Ml Disp.Syrin) 0 gm IV X1 PRN; Protocol PRN Reason: Hypoglycemia Enoxaparin Sodium (Enoxaparin 40 Mg/0.4 Ml Syringe) 40 mg SC DAILY PRATIBHA Glucagon (Glucagon 1 Mg/Ml Syringe) 1 mg IM .X1 PRN PRN Reason: Hypoglycemia Sodium Chloride () 1,000 mls @ 150 mls/hr IV .Q6H40M [facility] Last Admin: 05/04/20 03:52 Dose: 150 mls/hr Documented by: Sodium Chloride () 250 mls @ 15 mls/hr IV .[id number] PRN PRN Reason: Saline Flush Influenza Virus Vaccine Quadrival (Influenza Vaccine (6mos+)/Pf 0.5 Ml Syringe) 0.5 ml IM .ONCE ONE Stop: 05/04/20 10:01 Insulin Glargine (Insulin Glargine 100 Units/Ml Pen) 10 units SC QHS [facility] Last Admin: 05/03/20 22:54 Dose: 10 units Documented by: Insulin Human Lispro (Insulin Lispro 100 Unit/Ml Insuln.Pen) 5 unit SC BREAKFAST [facility] Last Admin: 05/04/20 07:24 Dose: 5 units Documented by: Insulin Human Lispro (Insulin Lispro 100 Unit/Ml Insuln.Pen) 5 unit SC DINNER [facility] Last Admin: 05/03/20 17:01 Dose: 5 u Documented by: Insulin Human Lispro (Insulin Lispro 100 Unit/Ml Insuln.Pen) 5 unit SC LUNCH [facility] Insulin Human Lispro (Insulin Lispro 100 Unit/Ml Insuln.Pen) 0 unit SC ACHS [facility]; Protocol Last Admin: 05/04/20 07:25 Dose: 14 units Documented by: Ondansetron HCl (Ondansetron 4 Mg/2 Ml Vial) 4 mg IV Q8H PRN PRN PRN Reason: NAUSEA/VOMITING Sodium Chloride (0.9% Saline Lock 10 Ml Syringe) 10 - 40 ml IV UD PRN PRN Reason: SALINE FLUSH Medical Necessity - Tobacco Use Smoking Status: Former smoker Tobacco Use: Non-smoker Assessment/Plan All Active Problems Hyperglycemia (Acute) MOISES (acute kidney injury) (Acute) Hyperosmolar hyperglycemic state (HHS) (Acute) Diabetes (Acute) Patient is a 39-year-old male admitted with markedly elevated glucose levels 1. Diabetes mellitus type 2 with severe hyperglycemia ?Patient admitted to regular nursing floor managed with aggressive fluid resuscitation as well as long-acting insulin with scheduled short acting insulin and sliding scale coverage -Adjusted the patient insulin regimen in view of patient still remaining hyperglycemic with glucose levels in the 400s 2. Hyponatremia ?Secondary to pseudohyponatremia from patient hyperglycemia 3. Acute kidney injury ?Secondary to dehydration managed with IV fluids resolved 4. Obesity with BMI of 67.9 ?Weight loss advised. Also counseled patient to follow-up with PCP for referral for possible gastric bypass 5. Dyslipidemia -Patient is on statin therapy, continued at home dose 6. DVT prophylaxis ?Lovenox x Inpatient E&M: [id number] [facility] Hosp L2
[2020-05-04] MEDS: Enoxaparin 40 MG/0.4 ML Syringe SC (09:07)
[2020-05-04 09:10] VITALS: BP 124/69; PULSE 90; RESP 20; TEMP 36.3; O2SAT 96
[2020-05-04] MEDS: Acetaminophen 325 MG Tablet 650 MG PO ×2 (10:21→18:51)
--- NOTE | 2020-05-04 12:02 | NURSING ---
Lab called for STAT lab backup for blood glucose of 481.
[2020-05-04 12:06] LABS: Bedside Glucose 481 mg/dL (70-110)
--- NOTE | 2020-05-04 12:09 | NURSING ---
1204 Pharmacy called to send Lantus.
[2020-05-04 12:47] LABS: Glucose 421 mg/dL (74-106)
[2020-05-04] MEDS: Insulin Lispro 100 UNIT/ML INSULN.PEN 15 UNIT SC ×2 (12:47→16:41)
--- NOTE | 2020-05-04 13:30 | CASEMGMT ---
MARIA E DAVIS Face to Face with patient for initial transition planning/care coordination assessment. MARIA E DAVIS introduced self and role at [facility]. Patient lying in bed, alert and oriented. Patient willing to participate in assessment and is able to answer all questions appropriately. Care providers, pharmacy, and demographics verified. Patient wishes to discharge home, denies need for home health at this time. Patient states he has no further needs or concerns at this time. CM to follow for discharge planning needs that may arise. PCP: Patient states he is moving to [place] and would like list of PCPs, MARIA E DAVIS provided list of PCPs Specialists: none Preferred Pharmacy: [facility] Insurance: [facility] Prescription Benefit: yes Living Will/HPOA: none LNOK: Parents Living Arrangements: Patient states he will be moving in with girlfriend in [place] when he discharges. GF lives in a 1st floor apartment with 5 steps to enter. Patient states he is independent at home. Transportation: girlfriend DME/HHC: Patient states he has Cpap at home but needs a new mask, MARIA E DAVIS instructed patient to call supplier for new mask and number should be on cpap machine. Patient states he will also need new glucometer and test strips at discharge. MARIA E DAVIS will assist patient in obtaining script for glucometer. Disposition Plan: Patient to discharge home with family support and follow-up plans in place. Mary MAO, RN, CM
[2020-05-04 14:55] LABS: Bedside Glucose > 500 mg/dL (70-110)
[2020-05-04 16:40] LABS: Bedside Glucose 401 mg/dL (70-110)
[2020-05-04 17:03] VITALS: BP 131/78; PULSE 89; RESP 18; TEMP 36.4; O2SAT 96
[2020-05-04 20:52] VITALS: BP 119/67; PULSE 86; RESP 18; TEMP 36.6; O2SAT 96
--- NOTE | 2020-05-04 21:00 | NURSING ---
Pt blood glucose at HS 450. Hospitalist contacted and ordered x1 dose 18 units humalog for sliding scale as this cuts off at 449, declined lab back up with protocol being check for blood glucose greater than 450
[2020-05-04] MEDS: Insulin Lispro 100 UNIT/ML INSULN.PEN 18 UNIT SC (21:10)
[2020-05-04] MEDS: BENZOCAINE/MENTHOL 1 LOZENGE MUCOUS MEM (21:13)
[2020-05-04 21:45] LABS: Bedside Glucose 450 mg/dL (70-110)
[2020-05-05 02:52] VITALS: BP 133/59; PULSE 79; RESP 18; TEMP 36.4; O2SAT 98
[2020-05-05] MEDS: Acetaminophen 325 MG Tablet 650 MG PO ×3 (02:57→14:36)
[2020-05-05] MEDS: BENZOCAINE/MENTHOL 1 LOZENGE MUCOUS MEM ×2 (02:59→09:59)
[2020-05-05] MEDS: 0.9% Normal Saline 1,000 ML 150 ML IV ×2 (05:56→12:00)
[2020-05-05 07:31] LABS: Bedside Glucose 352 mg/dL (70-110)
[2020-05-05] MEDS: Insulin Lispro 100 UNIT/ML INSULN.PEN 15 UNIT SC (07:32)
[2020-05-05] MEDS: Insulin Lispro 100 UNIT/ML INSULN.PEN SC ×3 (07:32→16:13)
--- NOTE | 2020-05-05 07:35 | PCM.PN.HOSP ---
Patient Problems: Active and Suspected Problems Hyperglycemia (Acute) MOISES (acute kidney injury) (Acute) Diabetes (Acute) Reason for Visit: Hyperglycemia Pharyngitis Subjective: Patient is seen blood glucose level still remains markedly elevated. Subsequent adjustment made to his insulin regimen. Patient also complains of generalized weakness as well as pharyngitis. Placed droplet and contact isolation whilst COVID-19 is being ruled out. Objective: GENERAL: cooperative HEENT: Atraumatic; EYES; Anicteric, Normal Conjunctiva NECK; supple, normal thyroid, RESPIRATORY: Diminished to auscultation CARDIOVASCULAR: Regular S1 S2, GI: soft, normoactive bowel sounds, : No Renal angle tenderness; EXTREMITIES: No edema, no clubbing, MUSCULOSKELETAL: no muscle waisting NEURO: Awake; no lateralizing signs. SKIN: No Rash PSYCH; Flat affect Vitals/I&O's: Vital Signs Temp Pulse Resp BP Pulse Ox 97.6 F L 79 18 133/59 H 98 05/05/20 02:52 05/05/20 02:52 05/05/20 02:52 05/05/20 02:52 05/05/20 02:52 Oxygen Delivery Method Room Air Weight: 227.2 kg Body Mass Index (BMI) 67.9 Finger Stick Blood Glucose 214 Intake and Output for Last 24 Hours 05/03/20 05/04/20 05/05/20 23:59 23:59 23:59 Intake Total 7127.5 / 7127.5 1700 / 1700 Output Total 4855 / 4855 1500 / 1500 Balance 2272.5 / 2272.5 200 / 200 Laboratory Results 05/04/20 11:59: POC Glucose 481 H* 05/04/20 12:25: Glucose 421 H 05/04/20 14:50: POC Glucose > 500 H* 05/04/20 16:36: POC Glucose 401 H 05/04/20 20:51: POC Glucose 450 H 05/05/20 07:24: POC Glucose 352 H Current Medications Acetaminophen (Acetaminophen 325 Mg Tablet) 650 mg PO Q4H PRN PRN PRN Reason: headache and generalized pain Last Admin: 05/05/20 02:57 Dose: 650 mg Documented by: Dextrose (Dextrose 50%-Water 25 Gm/50 Ml Disp.Syrin) 0 gm IV X1 PRN; Protocol PRN Reason: Hypoglycemia Enoxaparin Sodium (Enoxaparin 40 Mg/0.4 Ml Syringe) 40 mg SC DAILY [facility] Last Admin: 05/04/20 09:07 Dose: 40 mg Documented by: Glucagon (Glucagon 1 Mg/Ml Syringe) 1 mg IM .X1 PRN PRN Reason: Hypoglycemia Sodium Chloride () 1,000 mls @ 150 mls/hr IV .Q6H40M [facility] Last Admin: 05/05/20 05:56 Dose: 150 mls/hr Documented by: Sodium Chloride () 250 mls @ 15 mls/hr IV .[id number] PRN PRN Reason: Saline Flush Insulin Glargine (Insulin Glargine 100 Units/Ml Pen) 40 units SC BID [facility] Insulin Human Lispro (Insulin Lispro 100 Unit/Ml Insuln.Pen) 0 unit SC ACHS [facility]; Protocol Last Admin: 05/05/20 07:32 Dose: 12 units Documented by: Insulin Human Lispro (Insulin Lispro 100 Unit/Ml Insuln.Pen) 15 unit SC LUNCH [facility] Last Admin: 05/04/20 12:47 Dose: 15 units Documented by: Insulin Human Lispro (Insulin Lispro 100 Unit/Ml Insuln.Pen) 15 unit SC DINNER [facility] Last Admin: 05/04/20 16:41 Dose: 15 units Documented by: Insulin Human Lispro (Insulin Lispro 100 Unit/Ml Insuln.Pen) 15 unit SC BREAKFAST [facility] Last Admin: 05/05/20 07:32 Dose: 15 units Documented by: Ondansetron HCl (Ondansetron 4 Mg/2 Ml Vial) 4 mg IV Q8H PRN PRN PRN Reason: NAUSEA/VOMITING Sodium Chloride (0.9% Saline Lock 10 Ml Syringe) 10 - 40 ml IV UD PRN PRN Reason: SALINE FLUSH Throat Lozenges (Benzocaine/Menthol 1 Lozenge) 1 lozenge MUCOUS MEM Q6H PRN PRN PRN Reason: sore throat Last Admin: 05/05/20 02:59 Dose: 1 lozenge Documented by: Medical Necessity - Tobacco Use Smoking Status: Former smoker Tobacco Use: Non-smoker Assessment/Plan All Active Problems Hyperglycemia (Acute) MOISES (acute kidney injury) (Acute) Hyperosmolar hyperglycemic state (HHS) (Acute) Diabetes (Acute) Patient is a 39-year-old male admitted with markedly elevated glucose levels 1. Diabetes mellitus type 2 with severe hyperglycemia ?Patient admitted to regular nursing floor managed with aggressive fluid resuscitation as well as long-acting insulin with scheduled short acting insulin and sliding scale coverage -Adjusted the patient insulin regimen in view of patient still remaining hyperglycemic with glucose levels in the 400s -Patient is seen blood glucose level still remains markedly elevated. Subsequent adjustment made to his insulin regimen. 2. Pharyngitis; Placed in droplet and contact isolation whilst COVID-19 is being ruled out. Sent out for strep throat swab 3. Hyponatremia ?Secondary to pseudohyponatremia from patient hyperglycemia 4. Acute kidney injury ?Secondary to dehydration managed with IV fluids resolved 5. Obesity with BMI of 67.9 ?Weight loss advised. Also counseled patient to follow-up with PCP for referral for possible gastric bypass 6. Dyslipidemia -Patient is on statin therapy, continued at home dose 7. DVT prophylaxis ?Lovenox x Inpatient E&M: 22188 Subs Hosp L2
--- NOTE | 2020-05-05 07:36 | NURSING ---
nurse taught where to administer insulin , to rotate sites, and to hold pen in place for a moment after administering so insulin doesn't leak out.
[2020-05-05 07:38] VITALS: BP 137/82; PULSE 85; RESP 20; TEMP 36.3; O2SAT 98
[2020-05-05 09:38] VITALS: PULSE 80
[2020-05-05] MEDS: Enoxaparin 40 MG/0.4 ML Syringe SC (09:47)
[2020-05-05 11:00] LABS: Hematocrit 42.2 % (40-54); Hemoglobin 14.1 g/dL (13.0-16.5); Mean Corp Hgb Conc 33.4 g/dL (32-36); Mean Corpuscular Hgb 30.2 pg (27.0-32.0); Mean Corpuscular Volume 90.4 fL (80-94); Mean Platelet Vol. 11.4 fl (6.2-12.0); Platelet Count 204 K/mm3 (150-450); RBC Distribution Width CV 13.2 % (11.6-14.6); RBC Distribution Width SD 43.8 fl (35.1-43.9); Red Blood Count 4.67 M/mm3 (4.6-6.2); White Blood Count 7.8 K/mm3 (4.4-11.0)
[2020-05-05 11:16] LABS: International Normalized Ratio 1.1; Prothrombin Time (Protime)PT. 14.1 SECONDS (11.7-14.9)
[2020-05-05 11:17] LABS: Fibrinogen 513 mg/dl (203-444)
[2020-05-05 11:19] LABS: D-Dimer Quantitative (DVT/PE) 0.31 FEU/ug/m (0.27-0.49)
[2020-05-05 11:29] LABS: BNP,B-Type NATRIURETIC PEPTIDE 18.1 pg/mL (0-100)
[2020-05-05 11:35] LABS: Lactic Acid 1.4 mmol/L (0.4-1.9)
[2020-05-05 11:37] LABS: AST(SGOT) 35 U/L (15-37); Alanine Aminotransfer ALT/SGPT 37 U/L (16-61); Albumin, Serum 2.5 g/dL (3.2-5.0); Alkaline Phosphatase 103 U/L (45-117); Anion Gap 3 (5-15); BUN 10 mg/dL (7-18); Bilirubin, Direct 0.11 mg/dL (0.00-0.30); Calcium,Total 8.5 mg/dL (8.5-10.1); Chloride 99 mmol/L (98-107); EST Glomerular Filtration Rate 87 mL/min (>60); Est Glom Filt Rate - Afr Amer 106 mL/min (>60); Globulin 4.6 g/dL (2.2-4.2); Glucose 361 mg/dL (74-106); LDH 197 U/L (87-241); Magnesium 1.7 mg/dL (1.6-2.6); Potassium 4.2 mmol/L (3.5-5.1); Procalcitonin 0.04 ng/mL (0.00-0.09); Protein, Total 7.1 g/dL (6.4-8.2); Sodium Level 130 mmol/L (136-145)
[2020-05-05] MEDS: Insulin Lispro 100 UNIT/ML INSULN.PEN 20 UNIT SC ×2 (11:57→16:14)
[2020-05-05 14:05] LABS: Probe Check PASS; Specimen Processing Control PASS
[2020-05-05 14:29] VITALS: BP 139/87; PULSE 85; RESP 20; TEMP 36.3; O2SAT 97
[2020-05-05 14:37] VITALS: PULSE 80
--- NOTE | 2020-05-05 16:06 | DCINST_ITS ---
- Discharge Diagnoses Current Active Problems: Current Active and Chronic Problems Hyperglycemia (Acute) MOISES (acute kidney injury) (Acute) Sleep disorder breathing (Chronic) Hypertension (Chronic) Morbid obesity (Chronic) Diabetes (Acute) You will use the following diet at home:: Calorie/Carbohydrate Controlled (speci fy 1200, 1400, etc) - 1800 Your food should be the consistency of: Regular Discharge Activity: Return to Normal Activity, May not drive while taking n arcotic pain medications. Allergies/Adverse Reactions: Allergies No Known Allergies Allergy (Verified 05/03/20 09:10) Medications to take at Discharge Acetaminophen [Tylenol Tablet] 650 mg PO Q4H PRN PRN tab 05/05/20 Amoxicillin [Amoxil] 500 mg PO Q12 #20 cap 05/05/20 Atorvastatin Calcium [Lipitor] 20 mg PO QHS #60 tab 05/05/20 Insulin Glargine [Lantus SoloStar Pen] 50 units SC BID #20 pen 05/05/20 Insulin Lispro [Humalog KwikPen] 10 unit SC TIDCM #20 insuln.pen 05/05/20 Lisinopril [Zestril] 20 mg PO DAILY #60 tab 05/05/20 Loratadine [Claritin] 10 mg PO DAILY #30 tab 05/05/20 Metformin HCl 1,000 mg PO BID #120 tab 05/05/20 The following prescriptions were given: Amoxicillin [Amoxil] 500 mg PO Q12 #20 cap Transmission Status: Pending to [facility] Loratadine [Claritin] 10 mg PO DAILY #30 tab Transmission Status: Pending to [facility] Insulin Lispro [Humalog KwikPen] 10 unit SC TIDCM #20 insuln.pen Transmission Status: Pending to [facility] Insulin Glargine [Lantus SoloStar Pen] 50 units SC BID #20 pen Transmission Status: Pending to [facility] Atorvastatin Calcium [Lipitor] 20 mg PO QHS #60 tab Transmission Status: Pending to [facility] Metformin HCl 1,000 mg PO BID #120 tab Transmission Status: Pending to [facility] Lisinopril [Zestril] 20 mg PO DAILY #60 tab Transmission Status: Pending to [facility] Primary Care Physician: Julieth Doctor,Out of [NON-STAFF] - Please follow up with your Primary Care Physician in: in 1-2 weeks Test Results: Test results from this visit will be discussed in further detail at your follow- up appointment, if applicable. Please Follow Up With: Patsy Sevilla MD When: call for an appointment Proposed Discharge Date: 05/05/20
--- NOTE | 2020-05-05 16:08 | DS.PCM_ITS ---
Discharge Date and Diagnosis - Problem List Patient Problems: Active and Suspected Problems Hyperglycemia (Acute) MOISES (acute kidney injury) (Acute) Diabetes (Acute) Date of Admission: 05/03/20 Date of Discharge: 05/05/20 - Primary Discharge Diagnosis Acute Problems: Active Problems Hyperglycemia (Acute) MOISES (acute kidney injury) (Acute) Diabetes (Acute) - Secondary Discharge Diagnosis Chronic Problems: Chronic Problems Sleep disorder breathing (Chronic) Hypertension (Chronic) Morbid obesity (Chronic) Hospital Course and Treatment Operations: None Summary of Care Provided: Patient is a 39-year-old male admitted with markedly elevated glucose levels 1. Diabetes mellitus type 2 with severe hyperglycemia ?Patient admitted to regular nursing floor managed with aggressive fluid resuscitation as well as long-acting insulin with scheduled short acting insulin and sliding scale coverage -Adjusted the patient insulin regimen in view of patient still remaining hyperglycemic with glucose levels in the 400s -Patient is seen blood glucose level still remains markedly elevated. Subsequent adjustment made to his insulin regimen. ?Prescription written for patient on discharge 2. Pharyngitis; Placed in droplet and contact isolation whilst COVID-19 is being ruled out. Sent out for strep throat swab -Patient strep throat swab came back positive please on amoxicillin. 3. Hyponatremia ?Secondary to pseudohyponatremia from patient hyperglycemia 4. Acute kidney injury ?Secondary to dehydration managed with IV fluids resolved -Kidney injury had resolved at the time of discharge 5. Obesity with BMI of 67.9 ?Weight loss advised. Also counseled patient to follow-up with PCP for referral for possible gastric bypass 6. Dyslipidemia -Patient is on statin therapy, continued at home dose 7. Hypertension - Blood pressure controlled, home medications continued with dose adjustment as needed 8. Dyslipidemia -Patient is on statin therapy, continued at home dose 9. DVT prophylaxis ?Lovenox Patient Problems: Active and Suspected Problems Hyperglycemia (Acute) MOISES (acute kidney injury) (Acute) Diabetes (Acute) Objective: GENERAL: cooperative HEENT: Atraumatic; EYES; Anicteric, Normal Conjunctiva NECK; supple, normal thyroid, RESPIRATORY: Diminished to auscultation CARDIOVASCULAR: Regular S1 S2, GI: soft, normoactive bowel sounds, : No Renal angle tenderness; EXTREMITIES: No edema, no clubbing, MUSCULOSKELETAL: no muscle waisting NEURO: Awake; no lateralizing signs. SKIN: No Rash PSYCH; Flat affect - Physical Exam Vitals/I&O's: Vital Signs Temp Pulse Resp BP Pulse Ox 97.4 F L 80 20 H 139/87 H 97 05/05/20 14:29 05/05/20 14:37 05/05/20 14:29 05/05/20 14:29 05/05/20 14:29 Oxygen Delivery Method Room Air Weight: 227.2 kg Body Mass Index (BMI) 67.9 Finger Stick Blood Glucose 214 Intake and Output for Last 24 Hours 05/03/20 05/04/20 05/05/20 23:59 23:59 23:59 Intake Total 7127.5 / 7127.5 3510 / 3510 Output Total 4855 / 4855 1900 / 1900 Balance 2272.5 / 2272.5 1610 / 1610 Microbiology Past 72 Hours 05/05/20 12:55 Mucosa - Throat Group A Streptococcus Rapid Screen - Final Streptococcus Group A Laboratory Results 05/04/20 16:36: POC Glucose 401 H 05/04/20 20:51: POC Glucose 450 H 05/05/20 07:24: POC Glucose 352 H 05/05/20 10:36: PT 14.1, INR 1.1, Fibrinogen 513 H, D-Dimer Quant (PE/DVT) 0.31 05/05/20 10:36: Sodium 130 L, Potassium 4.2, Chloride 99, Carbon Dioxide 28.0, Anion Gap 3 L, BUN 10, Creatinine 1.00, Estim Creat Clear Calc 106.70, Est GFR (MDRD) Af Amer 106, Est GFR (MDRD) Non-Af 87, BUN/Creatinine Ratio 10.0, Glucose 361 H, Calcium 8.5, Magnesium 1.7, Total Bilirubin 0.40, Direct Bilirubin 0.11, AST 35, ALT 37, Alkaline Phosphatase 103, Lactate Dehydrogenase 197, C-React Prot Ext Range 18.70 H, Total Protein 7.1, Albumin 2.5 L, Globulin 4.6 H 05/05/20 10:36: Lactic Acid 1.4 05/05/20 10:36: B-Natriuretic Peptide 18.1 05/05/20 10:36: Procalcitonin 0.04 05/05/20 10:36: WBC 7.8, RBC 4.67, Hgb 14.1, Hct 42.2, MCV 90.4, MCH 30.2, MCHC 33.4, RDW Std Deviation 43.8, RDW Coeff of Ashanti 13.2, Plt Count 204, MPV 11.4 05/05/20 12:08: COVID-19 ([facility]) Negative Current Medications Acetaminophen (Acetaminophen 325 Mg Tablet) 650 mg PO Q4H PRN PRN PRN Reason: headache and generalized pain Last Admin: 05/05/20 14:36 Dose: 650 mg Documented by: Amoxicillin (Amoxicillin 500 Mg Capsule) 500 mg PO Q12 [facility] Dextrose (Dextrose 50%-Water 25 Gm/50 Ml Disp.Syrin) 0 gm IV X1 PRN; Protocol PRN Reason: Hypoglycemia Enoxaparin Sodium (Enoxaparin 40 Mg/0.4 Ml Syringe) 40 mg SC Q12 [facility] Glucagon (Glucagon 1 Mg/Ml Syringe) 1 mg IM .X1 PRN PRN Reason: Hypoglycemia Sodium Chloride () 1,000 mls @ 150 mls/hr IV .Q6H40M [facility] Last Admin: 05/05/20 12:00 Dose: 150 mls/hr Documented by: Sodium Chloride () 250 mls @ 15 mls/hr IV .[id number] PRN PRN Reason: Saline Flush Insulin Glargine (Insulin Glargine 100 Units/Ml Pen) 50 units SC BID [facility] Insulin Human Lispro (Insulin Lispro 100 Unit/Ml Insuln.Pen) 0 unit SC ACHS [facility]; Protocol Last Admin: 05/05/20 11:56 Dose: 12 units Documented by: Insulin Human Lispro (Insulin Lispro 100 Unit/Ml Insuln.Pen) 20 unit SC BREAKFAST [facility] Insulin Human Lispro (Insulin Lispro 100 Unit/Ml Insuln.Pen) 20 unit SC DINNER [facility] Insulin Human Lispro (Insulin Lispro 100 Unit/Ml Insuln.Pen) 20 unit SC LUNCH [facility] Last Admin: 05/05/20 11:57 Dose: 20 units Documented by: Ondansetron HCl (Ondansetron 4 Mg/2 Ml Vial) 4 mg IV Q8H PRN PRN PRN Reason: NAUSEA/VOMITING Sodium Chloride (0.9% Saline Lock 10 Ml Syringe) 10 - 40 ml IV UD PRN PRN Reason: SALINE FLUSH Throat Lozenges (Benzocaine/Menthol 1 Lozenge) 1 lozenge MUCOUS MEM Q6H PRN PRN PRN Reason: sore throat Last Admin: 05/05/20 09:59 Dose: 1 lozenge Documented by: Discharge Diet: 1800 Calorie Control Diet Discharge Activity: Return to Normal Activity, May not drive while taking narcotic pain medications. Home Medications: Medications to take at Discharge Acetaminophen [Tylenol Tablet] 650 mg PO Q4H PRN PRN tab 05/05/20 Amoxicillin [Amoxil] 500 mg PO Q12 #20 cap 05/05/20 Atorvastatin Calcium [Lipitor] 20 mg PO QHS #60 tab 05/05/20 Insulin Glargine [Lantus SoloStar Pen] 50 units SC BID #20 pen 05/05/20 Insulin Lispro [Humalog KwikPen] 10 unit SC TIDCM #20 insuln.pen 05/05/20 Lisinopril [Zestril] 20 mg PO DAILY #60 tab 05/05/20 Loratadine [Claritin] 10 mg PO DAILY #30 tab 05/05/20 Metformin HCl 1,000 mg PO BID #120 tab 05/05/20 Following Prescriptions Were Given to Patient: Amoxicillin [Amoxil] 500 mg PO Q12 #20 cap Transmission Status: Pending to [facility] Loratadine [Claritin] 10 mg PO DAILY #30 tab Transmission Status: Pending to [facility] Insulin Lispro [Humalog KwikPen] 10 unit SC TIDCM #20 insuln.pen Transmission Status: Pending to [facility] Insulin Glargine [Lantus SoloStar Pen] 50 units SC BID #20 pen Transmission Status: Pending to [facility] Atorvastatin Calcium [Lipitor] 20 mg PO QHS #60 tab Transmission Status: Pending to [facility] Metformin HCl 1,000 mg PO BID #120 tab Transmission Status: Pending to [facility] Lisinopril [Zestril] 20 mg PO DAILY #60 tab Transmission Status: Pending to [facility] Primary Care Physician: Julieth Doctor,Out of [NON-STAFF] - Please follow up with your Primary Care Physician in: in 1-2 weeks Please Follow Up With: Patsy Sevilla MD When: call for an appointment Disposition: Home Minutes spent on discharge:: 45 Patient Condition:: Stable Medical Necessity - Tobacco Use Smoking Status: Former smoker Tobacco Use: Non-smoker Meaningful Use Info Meaningful Use Diagnoses (Choose all that apply): None applicable Inpatient E&M: 06583 Disch Hosp
[2020-05-05 16:11] LABS: Bedside Glucose 344 mg/dL (70-110)
[2020-05-05] MEDS: AMOXICILLIN 500 MG CAPSULE PO (16:14)
[2020-05-05 16:25] LABS: Bedside Glucose 308 mg/dL (70-110)
--- NOTE | 2020-05-05 18:53 | NURSING ---
Pt informed nurse he knows how to check his glucose level. He was taught how to administer insulin, verbalized understanding, he administered it to himself by am with good tech.
== END 2020-05-05 19:15 | disposition home or self-care (01) | DRG 420 ==
LOC: ED 12:04 → MS3 05-04 07:13
PROVIDERS: Admitting Provider Family Medicine; Emergency Provider Emergency Medicine; Visit Provider Internal Medicine
DX: E11.65 Type 2 diabetes mellitus with hyperglycemia (principal); N17.9 Acute kidney failure, unspecified; E66.01 Morbid (severe) obesity due to excess calories; J02.9 Acute pharyngitis, unspecified; E86.0 Dehydration; I10 Essential (primary) hypertension; G47.30 Sleep apnea, unspecified; E78.5 Hyperlipidemia, unspecified; E87.1 Hypo-osmolality and hyponatremia; Z68.44 Body mass index [BMI] 60.0-69.9, adult; Z79.84 Long term (current) use of oral hypoglycemic drugs; Z82.49 Family history of ischemic heart disease and other diseases of the circulatory system; Z83.3 Family history of diabetes mellitus; Z87.891 Personal history of nicotine dependence; Z79.899 Other long term (current) drug therapy
CPT/HCPCS: 36415; 36600; 80048; 80053; 80076; 81001; 82009; 82248; 82803; 82947; 82962; 83036; 83605; 83615; 83690; 83735; 83880; 84145; 85025; 85027; 85379; 85384; 85610; 86140; 87040; 87070; 87077; 87205; 87635; 87880; 93005; 97802; 99218; 99285; 99406; J7030; 90686; A4216; G0378; J2405; U0002

== ENCOUNTER 2020-07-21 11:14 | Emergency (ER) | payer MEDICAID, SELFPAY ==
[2020-05-14 14:17] VITALS: BMI 71.1
[2020-07-21 11:15] VITALS: BP 108/82; PULSE 98; RESP 16; TEMP 36.8; O2SAT 100; BMI 75.6
--- NOTE | 2020-07-21 11:39 | ED.VISSUMM ---
- ER Visit Summary Date of Service: 07/21/20 Chief Complaint: Rash and bilateral eye redness History of Present Illness: The patient is a 40 M who presents with a rash to his perineal area that has been getting worse over the past week. Patient states that over the last couple days he has noted a rash over his upper chest as well. Patient states he has been scratching the areas. Patient states the rash is pruritic. Patient denies any new exposures such as soaps, shampoos, laundry detergents, fabric softeners, or foods. Patient states that over the past couple days he also noted some bilateral eye redness. Patient states there were matted shut this morning. Patient admits to some blurred vision. Patient denies any trauma or injury. Patient denies any fevers or chills. Physical Examination: Vital signs are stable. Patient is afebrile. Patient is in no acute distress. Pupils are equal, round, and reactive to light bilaterally. Extraocular muscles are intact. Conjunctiva was injected bilaterally. There is no purulent drainage but there is some watery drainage. Neck is supple. Trachea is midline. There is no JVD. Heart was regular rate and rhythm. Lungs are clear and equal bilaterally. Abdomen is soft. Bowel sounds are normal. There is no tenderness. Skin is warm dry. There is an erythematous maculopapular rash over the anterior chest. There are no vesicles or pustules. There are no petechia noted. There is also an erythematous macular rash in the inguinal and perineal area. There is no discharge or drainage. There is no crusting. There is no involvement of mucous membranes. Cranial nerves II through XII are intact. There are no focal motor or sensory deficits. Emergency Department Course and Treatment: Patient was given a prescription for Lotrisone cream to apply to the perineum as well as the anterior chest. Patient was given prescription for gentamicin ophthalmic drops. Patient was instructed to follow-up with his primary care physician in 5 to 7 days. Patient understood and was agreeable with the plan. All questions were answered. Disposition: Discharge home Impression: 1. Tinea cruris 2. Contact dermatitis 3. Conjunctivitis This note was generated with [employer] software. It may contain incorrect words, spelling, and punctuation that were not noted in review of the chart prior to signing ED Disposition - Plan for ED Patient: Disposition: Home or Assisted Living Diagnosis: Tinea cruris, Contact dermatitis, Conjunctivitis Instructions: ED Jock Itch (Tinea Cruris, General), ED Conjunctivitis, Nonspecific Prescriptions: Gentamicin Ophthalmic Drops [Garamycin Ophthalmic Drops] 1 drp EACH EYE Q4 #1 opth.btl Prescription Printed Clotrimazole/Betamethasone [Lotrisone] 1 applic TOPICAL BID #30 g Prescription Printed Referrals: Geena Paez MD [Primary Care Provider] - 5-7 Days
[2020-07-21 11:56] VITALS: BP 108/82; PULSE 98; RESP 18
== END 2020-07-21 12:16 | disposition home or self-care (01) ==
LOC: ED 12:00
PROVIDERS: Emergency Provider Emergency Medicine; PCP Internal Medicine
DX: B35.6 Tinea cruris (principal); L25.9 Unspecified contact dermatitis, unspecified cause; H10.9 Unspecified conjunctivitis
CPT/HCPCS: 99282

== ENCOUNTER → 2020-09-10 16:00 | Outpatient (CLI) | payer MEDICAID, SELFPAY ==
[2020-09-10 16:49] LABS: Absolute Lymphocyte Count 3.01 X10^3/uL (0.83-4.51); Absolute Neutrophil Count 5.5 X10^3/uL (2.0-7.7); Basophil# 0.02 X10^3/uL; Basophil% 0.2 % (0-1); Eosinophil# 0.06 X10^3/uL; Eosinophils% 0.6 % (0-5); Hematocrit 43.8 % (40-54); Hemoglobin 14.6 g/dL (13.0-16.5); Lymphocyte # 3.01 X10^3/ul (4.0); Lymphocyte % 32.3 % (19-41); Mean Corp Hgb Conc 33.3 g/dL (32-36); Mean Corpuscular Hgb 31.1 pg (27.0-32.0); Mean Corpuscular Volume 93.2 fL (80-94); Mean Platelet Vol. 11.6 fl (6.2-12.0); Monocyte% 7.5 % (0-10); NRBC Flagged by Analyzer 0 % (0-5); Neutrophil # 5.48 X10^3/uL (2.7-7.7); Platelet Count 228 K/mm3 (150-450); RBC Distribution Width CV 14.8 % (11.6-14.6); RBC Distribution Width SD 51.3 fl (35.1-43.9); White Blood Count 9.3 K/mm3 (4.4-11.0)
[2020-09-10 17:04] LABS: Hemoglobin A1c 13.4 % (3.8-5.6)
[2020-09-10 17:15] LABS: ALB/GLOB Ratio 0.6 RATIO (0.9-2.4); AST(SGOT) 14 U/L (15-37); Alanine Aminotransfer ALT/SGPT 17 U/L (16-61); Albumin, Serum 2.8 g/dL (3.2-5.0); Alkaline Phosphatase 110 U/L (45-117); Anion Gap 8 (5-15); BUN 7 mg/dL (7-18); BUN/Creat Ratio 9.2 RATIO (10-20); Calcium,Total 9.2 mg/dL (8.5-10.1); Chloride 100 mmol/L (98-107); Cholesterol 144 mg/dL (200); Creatinine, Serum 0.76 mg/dL (0.70-1.30); EST Glomerular Filtration Rate 119 mL/min (>60); Est Glom Filt Rate - Afr Amer 144 mL/min (>60); Globulin 4.9 g/dL (2.2-4.2); Glucose 310 mg/dL (74-106); High Density Lipoprotein 47 mg/dL; Potassium 3.8 mmol/L (3.5-5.1); Protein, Total 7.7 g/dL (6.4-8.2); Sodium Level 136 mmol/L (136-145); Triglycerides 106 mg/dL; Very Low Density Lipoprotein 21 mg/dL (5-40)
[2020-09-10 17:28] LABS: Vitamin D,25 Hydroxy 8.7 ng/mL
== END ==
PROVIDERS: PCP Internal Medicine; Referring Provider Internal Medicine; Visit Provider Internal Medicine
DX: E78.5 Hyperlipidemia, unspecified (principal); I10 Essential (primary) hypertension; E11.9 Type 2 diabetes mellitus without complications; G47.30 Sleep apnea, unspecified; E66.01 Morbid (severe) obesity due to excess calories; Z68.45 Body mass index [BMI] 70 or greater, adult
CPT/HCPCS: 36415; 80053; 80061; 82306; 83036; 85025

== ENCOUNTER → 2021-02-16 15:38 | Outpatient (CLI) | payer MEDICAID, SELFPAY ==
[2021-02-16 15:10] VITALS: BMI 59.6
[2021-02-16 16:35] LABS: Absolute Lymphocyte Count 2.02 X10^3/uL (0.83-4.51); Absolute Neutrophil Count 7.2 X10^3/uL (2.0-7.7); Basophil# 0.02 X10^3/uL; Basophil% 0.2 % (0-1); Eosinophil# 0.16 X10^3/uL; Eosinophils% 1.6 % (0-5); Hematocrit 38.1 % (40-54); Hemoglobin 12.2 g/dL (13.0-16.5); Lymphocyte # 2.02 X10^3/ul (0.83-4.51); Lymphocyte % 20.2 % (19-41); Mean Corpuscular Hgb 30.8 pg (27.0-32.0); Mean Corpuscular Volume 96.2 fL (80-94); Mean Platelet Vol. 9.5 fl (6.2-12.0); Monocyte# 0.63 X10^3/uL; Monocyte% 6.3 % (0-10); NRBC Flagged by Analyzer 0 % (0-5); Neutrophil # 7.15 X10^3/uL (2.7-7.7); Neutrophil % 71.3 % (47-70); Platelet Count 270 K/mm3 (150-450); RBC Distribution Width CV 13.7 % (11.6-14.6); RBC Distribution Width SD 48.2 fl (35.1-43.9); Red Blood Count 3.96 M/mm3 (4.6-6.2)
[2021-02-16 16:59] LABS: ALB/GLOB Ratio 0.7 RATIO (0.9-2.4); AST(SGOT) 11 U/L (15-37); Alanine Aminotransfer ALT/SGPT 15 U/L (16-61); Albumin, Serum 2.8 g/dL (3.2-5.0); Alkaline Phosphatase 83 U/L (45-117); Anion Gap 4 (5-15); BUN 7 mg/dL (7-18); BUN/Creat Ratio 10.5 RATIO (10-20); Calcium,Total 8.5 mg/dL (8.5-10.1); Chloride 107 mmol/L (98-107); Cholesterol 109 mg/dL (200); Creatinine, Serum 0.67 mg/dL (0.70-1.30); EST Glomerular Filtration Rate 138 mL/min (>60); Est Glom Filt Rate - Afr Amer 167 mL/min (>60); Globulin 4.3 g/dL (2.2-4.2); Glucose 123 mg/dL (74-106); High Density Lipoprotein 46 mg/dL; Magnesium 1.7 mg/dL (1.6-2.6); Potassium 3.7 mmol/L (3.5-5.1); Protein, Total 7.1 g/dL (6.4-8.2); Sodium Level 141 mmol/L (136-145); Thyroid Stim Hormone (TSH) 0.74 uIU/mL (0.358-3.74); Triglycerides 51 mg/dL; Very Low Density Lipoprotein 10 mg/dL (5-40)
[2021-02-16 17:01] LABS: Hemoglobin A1c 10.8 % (3.8-5.6)
[2021-02-16 17:29] LABS: D-Dimer Quantitative (DVT/PE) 1.83 FEU/ug/m (0.27-0.49)
== END ==
PROVIDERS: PCP Internal Medicine; Visit Provider Internal Medicine
DX: E78.5 Hyperlipidemia, unspecified (principal); I10 Essential (primary) hypertension; E11.9 Type 2 diabetes mellitus without complications; E66.01 Morbid (severe) obesity due to excess calories; G47.30 Sleep apnea, unspecified; Z68.45 Body mass index [BMI] 70 or greater, adult
CPT/HCPCS: 36415; 80053; 80061; 82306; 83036; 83735; 83880; 84443; 85025; 85379

== ENCOUNTER → 2021-12-22 | Outpatient (CLI) | payer MEDICAID, SELFPAY ==
[2021-12-22 12:07] LABS: Absolute Lymphocyte Count 1.98 X10^3/uL (0.83-4.51); Basophil# 0.02 X10^3/uL; Basophil% 0.2 % (0-1); Eosinophil# 0.04 X10^3/uL; Eosinophils% 0.4 % (0-5); Hematocrit 43.2 % (40-54); Hemoglobin 14.7 g/dL (13.0-16.5); Lymphocyte # 1.98 X10^3/ul (0.83-4.51); Mean Corpuscular Hgb 30.9 pg (27.0-32.0); Mean Corpuscular Volume 90.8 fL (80-94); Mean Platelet Vol. 12.2 fl (6.2-12.0); Monocyte# 0.89 X10^3/uL; Monocyte% 9.9 % (0-10); NRBC Flagged by Analyzer 0 % (0-5); Neutrophil # 6.03 X10^3/uL (2.7-7.7); Neutrophil % 67.1 % (47-70); Platelet Count 173 K/mm3 (150-450); RBC Distribution Width CV 14.4 % (11.6-14.6); Red Blood Count 4.76 M/mm3 (4.6-6.2)
[2021-12-22 12:33] LABS: Hemoglobin A1c 11.8 % (3.8-5.6)
[2021-12-22 12:39] LABS: ALB/GLOB Ratio 0.6 RATIO (0.9-2.4); AST(SGOT) 11 U/L (15-37); Alanine Aminotransfer ALT/SGPT 18 U/L (16-61); Albumin, Serum 2.7 g/dL (3.2-5.0); Alkaline Phosphatase 96 U/L (45-117); Anion Gap 11 (5-15); BUN 14 mg/dL (7-18); Calcium,Total 9.4 mg/dL (8.5-10.1); Chloride 95 mmol/L (98-107); Cholesterol 147 mg/dL (200); Creatinine, Serum 0.82 mg/dL (0.70-1.30); EST Glomerular Filtration Rate 108 mL/min (>60); Est Glom Filt Rate - Afr Amer 131 mL/min (>60); Free T3 2.3 pg/mL (2.18-3.98); Globulin 4.5 g/dL (2.2-4.2); Glucose 438 mg/dL (74-106); High Density Lipoprotein 47 mg/dL; Magnesium 1.5 mg/dL (1.6-2.6); PSA,Total - Annual Screen 0.35 ng/mL (0.00-4.00); Potassium 4.4 mmol/L (3.5-5.1); Protein, Total 7.2 g/dL (6.4-8.2); Sodium Level 129 mmol/L (136-145); T4 Free Direct 1.05 ng/dL (0.76-1.46); Thyroid Stim Hormone (TSH) 1.04 uIU/mL (0.358-3.74); Triglycerides 110 mg/dL; Very Low Density Lipoprotein 22 mg/dL (5-40)
[2021-12-22 15:40] LABS: Vitamin D,25 Hydroxy 12.3 ng/mL
== END | disposition home or self-care (01) ==
LOC: BIMLAB 11:06
PROVIDERS: PCP Internal Medicine; Visit Provider Internal Medicine
DX: I10 Essential (primary) hypertension (principal); E66.01 Morbid (severe) obesity due to excess calories; Z68.45 Body mass index [BMI] 70 or greater, adult; E11.9 Type 2 diabetes mellitus without complications; G47.30 Sleep apnea, unspecified; E78.5 Hyperlipidemia, unspecified; R06.00 Dyspnea, unspecified; Z12.5 Encounter for screening for malignant neoplasm of prostate
CPT/HCPCS: 84153; 36415; 80053; 80061; 82306; 83036; 83735; 84439; 84443; 84481; 85025; G0103

== ENCOUNTER 2022-03-23 14:32 | Inpatient (IN) | payer MEDICAID, SELFPAY ==
[2022-03-23] VITALS (13 sets, daily range): BP systolic 99–149; BP diastolic 45–80; PULSE 81–111; RESP 12–24; TEMP 36.3–36.8; O2SAT 95–100; BMI 65.2; BMI 65.3
[2022-03-23 15:23] LABS: Absolute Lymphocyte Count 2.49 X10^3/uL (0.83-4.51); Absolute Neutrophil Count 7.1 X10^3/uL (2.0-7.7); Basophil# 0.02 X10^3/uL; Basophil% 0.2 % (0-1); Eosinophil# 0.01 X10^3/uL; Eosinophils% 0.1 % (0-5); Hematocrit 45.8 % (40-54); Hemoglobin 15.8 g/dL (13.0-16.5); Lymphocyte # 2.49 X10^3/ul (0.83-4.51); Lymphocyte % 22.9 % (19-41); Mean Corp Hgb Conc 34.5 g/dL (32-36); Mean Corpuscular Hgb 31.9 pg (27.0-32.0); Mean Corpuscular Volume 92.5 fL (80-94); Mean Platelet Vol. 10.3 fl (6.2-12.0); Monocyte# 1.23 X10^3/uL; Monocyte% 11.3 % (0-10); NRBC Flagged by Analyzer 0 % (0-5); Neutrophil # 7.05 X10^3/uL (2.7-7.7); Neutrophil % 64.7 % (47-70); Platelet Count 209 K/mm3 (150-450); RBC Distribution Width CV 14.3 % (11.6-14.6); RBC Distribution Width SD 47.5 fl (35.1-43.9); Red Blood Count 4.95 M/mm3 (4.6-6.2); White Blood Count 10.9 K/mm3 (4.4-11.0)
[2022-03-23] MEDS: 0.9% Normal Saline 1,000 ML 1000 ML IV (15:29)
[2022-03-23] MEDS: Ondansetron 4 MG/2 ML Vial IV (15:29)
--- NOTE | 2022-03-23 15:30 | RAD_ITS ---
INDICATION: chest pain EXAMINATION/TECHNIQUE: X-RAY - XR Chest 2 Views COMPARISON: 04/14/2016. FINDINGS: LINES/DEVICES: None. LUNGS: No consolidation, edema or effusion. No pneumothorax. MEDIASTINUM AND CARDIOVASCULAR STRUCTURES: Cardiac silhouette not enlarged. Central airways and mediastinal contour are unremarkable. BONES AND SOFT TISSUES: Unremarkable. RAD/Chest PA and Lateral IMPRESSION: No radiographic evidence of acute cardiopulmonary disease. Electronically Signed: Aristeo Lowery MD at 15:50 EDT ,
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
[2022-03-23 15:48] LABS: AST(SGOT) 12 U/L (15-37); Alanine Aminotransfer ALT/SGPT 17 U/L (16-61); Albumin, Serum 2.9 g/dL (3.2-5.0); Alkaline Phosphatase 107 U/L (45-117); Anion Gap 23 (5-15); BUN 10 mg/dL (7-18); BUN/Creat Ratio 5.6 RATIO (10-20); Bilirubin, Direct 0.14 mg/dL (0.00-0.30); Calcium,Total 9.4 mg/dL (8.5-10.1); Chloride 91 mmol/L (98-107); Creatinine, Serum 1.77 mg/dL (0.70-1.30); EST Glomerular Filtration Rate 45 mL/min (>60); Est Glom Filt Rate - Afr Amer 54 mL/min (>60); Estimated Creatinine Clearance 59.06 ml/min; Globulin 5.1 g/dL (2.2-4.2); Glucose 557 mg/dL (74-106); Lipase 117 U/L (73-393); Potassium 4.1 mmol/L (3.5-5.1); Sodium Level 130 mmol/L (136-145); Troponin-I HS 14 pg/mL (3.0-78.0)
[2022-03-23 16:09] LABS: Mucous, Urine 0 SEEN /hpf (<or=2+); Squamous Epithelial Cells - UA 0 SEEN /hpf (0-5)
[2022-03-23 16:10] LABS: Bedside Glucose > 500 mg/dL (74-106)
[2022-03-23 16:10] LABS: Bedside Glucose > 500 mg/dL (74-106)
[2022-03-23] MEDS: Famotidine 200 MG/20 ML MDV 20 MG in 0.9% Normal Saline (Pres. free 8 ML 300 MG IV (16:12)
[2022-03-23 16:15] LABS: Color, Urine Yellow (Yellow); Glucose, Dipstick 1000 mg/dl (Normal); Leukocyte Esterase-Dipstick 500 /ul (Negative); Nitrite-Dipstick Negative (Negative); Occult Blood-Urine 10 /ul (Negative); Protein-Dipstick 30 mg/dl (Negative); Specific Gravity, Urine 1.015 (1.002-1.030); Urine Clarity Sl. Cloudy (Clear); Urine Urobilinogen 1 mg/dl (Normal)
[2022-03-23 16:15] LABS: Blood Gas Specimen Type VEN; O2 Delivery Device Room Air; VBG BASE EXCESS -13 mmol/L (-1.0-3.5); VBG Bicarbonate 13 mmol/L (22-26); VBG PO2 80 mmHg (25-40); VBG SO2 95 % (50-70); VBG TCO2 14 mmol/L (23-33); VBG pCO2 24.8 mmHg (41-51); VBG pH 7.33 (7.32-7.42)
[2022-03-23 16:16] LABS: Urine Bilirubin Dipstick 1 mg/dL (Negative)
[2022-03-23 16:17] LABS: Ketone-Dipstick 150 mg/dl (Negative)
[2022-03-23 16:43] LABS: Bacteria 1+ /hpf (None Seen); Red Blood Cells-Urine 0-5 SEEN /hpf (0-5); White Blood Cells 10-25 SEEN /hpf (0-5)
--- NOTE | 2022-03-23 17:05 | HP.PCM.HOS_ITS ---
HPI - General General Date of Admission: 03/23/22 Date of Service: 03/23/22 Chief Complaint: feelign weak HPI Narrative PAUL BARILLAS, is a 41 M with a PMH as outlined who presents via the ED on 03/23/2022 with a complaint of generalised malaise and weakness. He is a known diabetic who has been out of his insulin for the last couple of weeks, as he says he had problems with his insurance. He complains of some generalised malaise, weakness, chest discomfort with nausea, vomiting, cosntipation and headache. He has not been eating or drinking well. He called his PCP, and was told to come in to the ED. He denies any fever or chills. REview of systems is otherwise negative. Vitals in [facility] ED were [place] of 89, RR 0of 19, and she was saturating at 97% on room air. CBC was unremarkable, and BMP showed sodium of 130, potassium of 4.1, bicarb of 16 and Cr of 1.77. Blood sugar was 557 and initial troponin was 14. Urinalysis showed leucocyte esterase of 500 and bacteria of 1+. Anion gap was 23. He is being admitted to be managed for DKA and MOISES as well as UTI. [facility] Medical History (Updated 03/23/22 @ 17:[address] Eleonora Bowman MD) Diabetes Hyperlipemia Hypertension Home Medications blood-glucose meter #1 ea 06/29/20 [Rx Last Taken Unknown] insulin needles (disposable) 30 X 3/4 ##1 06/29/20 [History Last Taken Unknown] Paul Barillas I #1 ea 08/03/20 [Rx Last Taken Unknown] lisinopril 20 mg tablet 20 mg PO DAILY #90 tabs 11/02/20 [Rx Last Taken 03/23/22] blood sugar diagnostic ([employer] Verio test strips) #100 ea 12/07/20 [Rx Last Taken Unknown] atorvastatin 20 mg tablet 20 mg PO QHS 02/02/21 [History Last Taken 03/23/22] insulin lispro 100 unit/mL subcutaneous pen 20 unit (0.2 mL) subcut TIDCM #15 mL 12/24/21 [Rx Last Taken 1 Month Ago ~02/20/22] lancets 30 gauge ([employer] Delica Lancets) #200 ea 01/27/22 [Rx Last Taken Unknown] pen needle, diabetic 33 gauge x 5/32 (Advocate Pen Needle) #100 ea 01/27/22 [Rx Last Taken Unknown] insulin glargine 100 unit/mL (3 mL) subcutaneous pen 26 unit subcut QPM 03/23/22 [History Last Taken 1 Month Ago ~02/20/22] omeprazole 20 mg capsule,delayed release 20 mg PO DAILY 03/23/22 [History Last Taken 2 Months Ago ~01/20/22] Allergy/AdvReac Type Severity Reaction Status Date / Time No Known Allergies Allergy Verified 03/23/22 14:32 Family History Grandmother Diabetes Uncle Diabetes Grandmother Heart disease Aunt Heart disease Father Cancer prostate Surgical History right shoulder Social History Smoking Status: Current every day smoker tobacco type: cigarettes alcohol intake: former substance use type: does not use ROS Review of Systems ROS Unobtainable: Denies due to encephalopathy Constitutional Constitutional: Reports anorexia, fatigue, malaise and weakness; Denies change in weight, chills or fever(s) Eyes Eyes: Denies change in vision ENT HEENT: Denies dysphagia, headache(s), nasal congestion or sore throat Cardiovascular Cardiovascular: Reports chest pain; Denies dyspnea on exertion, edema, lightheadedness, orthopnea, palpitations, paroxysmal nocturnal dyspnea, rapid heart rate or syncope Respiratory/Chest Respiratory/Chest: Denies cough, dyspnea, productive cough, shortness of breath at rest, shortness of breath with exertion or wheezing Gastrointestinal Gastrointestinal: Reports nausea and vomiting; Denies abdominal pain, coffee ground emesis, diarrhea or dyspepsia Genitourinary Genitourinary: Reports urinary frequency; Denies dysuria, nocturia, urinary hesitancy, urinary incontinence or urinary urgency Musculoskeletal Musculoskeletal: Denies arthralgias or joint swelling Neurologic Neurologic: Denies confusion, dizziness, focal weakness, headache(s), seizures, syncope or tremor(s) Psychiatric Psychiatric: Denies anxiety or depression Endocrine Endocrinology: Denies change in body appearance Vital Signs Vital Signs Vital Signs: 03/23/22 14:32 03/23/22 17:02 Temperature 97.4 F L Temperature Source Temporal Pulse Rate 111 H 89 Respiratory Rate 16 19 H Blood Pressure 99/64 Blood Pressure Mean 75 Pulse Ox 95 97 Oxygen Delivery Method Room Air Room Air Weight Weight: 481 lb Body Mass Index (BMI) 65.2 Physical Exam Const alert, oriented x3 and no apparent distress Constitutional Narrative: super morbid obesity General Appearance: cooperative HEENT normocephalic, head/scalp atraumatic, hearing grossly normal bilaterally and moist oral mucous membranes Mouth: oral and palatal mucosa normal Eyes PERRL, EOMs intact bilaterally and conjunctivae normal Neck no lymphadenopathy, supple and no JVD Resp normal respiratory effort, no retractions, no use of accessory muscles and clear to auscultation bilaterally Cardio regular rate, regular rhythm, S1 normal heart sound, S2 normal heart sound and no murmurs GI normal to inspection, nondistended, normoactive bowel sounds, soft to palpation and non-tender GI Narrative: obese abdomen Extremity normal to inspection, full ROM and no clubbing, cyanosis or edema Neuro oriented x3, CN's II-XII intact bilaterally, moves all extremities and no focal motor deficits Sensorium / Orientation: awake and alert Motor Exam: strength 5/5 throughout Psych affect normal Results Lab / Micro Data Result Diagrams: 03/23/22 15:15 03/23/22 15:15 Labs: Laboratory Results - last 24 hr 03/23/22 14:42: POC Glucose > 500 H* 03/23/22 14:46: POC Glucose > 500 H* 03/23/22 15:15: WBC 10.9, RBC 4.95, Hgb 15.8, Hct 45.8, MCV 92.5, MCH 31.9, MCHC 34.5, RDW Std Deviation 47.5 H, RDW Coeff of Ashanti 14.3, Plt Count 209, MPV 10.3, Immature Gran % (Auto) 0.800, Neut % (Auto) 64.7, Lymph % (Auto) 22.9, [place] % (Auto) 11.3 H, Eos % (Auto) 0.1, Baso % (Auto) 0.2, Absolute Neuts (auto) 7.1, Absolute Lymphs (auto) 2.49, Nucleated RBC % 0 03/23/22 15:15: Sodium 130 L, Potassium 4.1, Chloride 91 L, Carbon Dioxide 16.0 L, Anion Gap 23 H, BUN 10, Creatinine 1.77 H, Estim Creat Clear Calc 59.06, Est GFR (MDRD) Af Amer 54 L, Est GFR (MDRD) Non-Af 45 L, BUN/Creatinine Ratio 5.6 L, Glucose 557 H*, Calcium 9.4, Total Bilirubin 0.60, Direct Bilirubin 0.14, AST 12 L, ALT 17, Alkaline Phosphatase 107, Troponin I High Sens 14, Total Protein 8.0, Albumin 2.9 L, Globulin 5.1 H, Lipase 117 03/23/22 15:15: Acetone Level MODERATE H 03/23/22 16:05: Urine Color Yellow, Urine Clarity Sl. Cloudy, Urine pH 6.0, Ur Specific [place] 1.015, Urine Protein 30 H, Urine Glucose (UA) 1000 H, Urine Ketones 150 A*, Urine Occult Blood 10 H, Urine Nitrite Negative, Urine Bilirubin 1 H, Urine Urobilinogen 1 H, Ur Leukocyte Esterase 500 H, Urine RBC 0-5 SEEN, Urine WBC 10-25 SEEN, Ur Squamous Epith Cells 0 SEEN, Urine Bacteria 1+, Urine Mucus 0 SEEN ABG Data ABG results: ABG 03/23/22 16:07 Specimen Type IVETTE VBG pH 7.33 VBG pO2 80 H VBG HCO3 13 L VBG Total CO2 14 L VBG O2 Sat (Calc) 95 H VBG Base Excess -13 L POC Mix VBG pCO2 Pt Tmp 24.8 L O2 Delivery Device Room Air Rhythm Strip Rhythm Strip: Sinus Rhythm Rate: 98 Ectopy: None Radiology Impression Chest X-Ray 03/23/22 15:30 IMPRESSION: No radiographic evidence of acute cardiopulmonary disease. Electronically Signed: Aristeo Lowery MD at 15:50 EDT Reading Location ID and State: [facility] / [place] Tel , Service support , Assessment & Plan Assessment/Plan (1) DKA (diabetic ketoacidoses): (2) UTI (urinary tract infection): (3) High anion gap metabolic acidosis: PLAN: Plan #DKA due to noncompliance with insulin * has not been taking his insulin for the past 2 weeks because he run out and says he has problems with his insurance * blood glucose >500, with bicarb of 16 and anion gap of 23 * admit to ICU * start on insulin drip * hydrate with IVF NS per DKA protocol * BMP q4hrly * keep nPO for now * consult critical care as patient is in ICU * once gap closes x 2, to transition to D5 1/2 NS and switch to home dose of insulin * check A1C * #UTI * urinalysis shows evidence of UTI with elevated leucocyte esterase and positive bacteria * start on IV ceftriaxone and get urine culture * #MOISES: * Cr is 1.77. Likely due to nausea and vomiting and MOISES. * Likely pre-renal. Hydrate with IVF and trend CR for now * #High anion gap metabolic acidosis * likely due to DKA * should resolve as DKA resolves * #Hypertension * on lisinopril. Hold o/a of MOISES * * #HYperlipidemia: on atorvastatin * * DVT prophylaxis: lovenox, renally dosed Code status: full code * Patient counseled extensively about different types of CODE STATUS including full code, DNR CCA and DNR CCA. Patient elects to be full code. * Total [id number] time 17 minutes. * TOtal face to face critical care time spent on patient: 45 mins Charges/Coding Visit Charges Inpatient E&M: 48232 Init Hosp L3 Procedures Hospitalists Procedures: 48417 Critial Care 1st Hr (advanced planning 75638)
[2022-03-23] MEDS: 0.9% Normal Saline 1,000 ML 999 ML IV (17:37)
[2022-03-23 17:46] LABS: Bedside Glucose > 500 mg/dL (74-106)
[2022-03-23] MEDS: Ceftriaxone 1 GM/50 ML BAG IV (17:54)
[2022-03-23] MEDS: Potassium Chloride 10mEq/100mL 10 MEQ/100 ML IV.SOLN. 100 MEQ IV BOLUS ×2 (18:20→19:38)
[2022-03-23 18:35] LABS: Bedside Glucose > 500 mg/dL (74-106)
[2022-03-23] MEDS: 0.9% Normal Saline 1,000 ML 500 ML IV (19:40)
[2022-03-23 20:15] LABS: Anion Gap 18 (5-15); BUN 13 mg/dL (7-18); BUN/Creat Ratio 7.8 RATIO (10-20); Calcium,Total 8.8 mg/dL (8.5-10.1); Chloride 94 mmol/L (98-107); Creatinine, Serum 1.66 mg/dL (0.70-1.30); EST Glomerular Filtration Rate 48 mL/min (>60); Est Glom Filt Rate - Afr Amer 58 mL/min (>60); Estimated Creatinine Clearance 62.98 ml/min; Glucose 545 mg/dL (74-106); Potassium 4.3 mmol/L (3.5-5.1); Sodium Level 130 mmol/L (136-145)
[2022-03-23] MEDS: 0.9% Normal Saline 1,000 ML 250 ML IV (21:42)
[2022-03-23] MEDS: Atorvastatin Calcium 20 MG Tablet PO (21:44)
[2022-03-23] MEDS: Enoxaparin 30 MG/0.3 ML Syringe SC (21:44)
[2022-03-23 22:51] LABS: Bedside Glucose 434 mg/dL (74-106)
[2022-03-23 22:51] LABS: Bedside Glucose > 500 mg/dL (74-106)
[2022-03-23 22:51] LABS: Bedside Glucose 311 mg/dL (74-106)
[2022-03-23 22:51] LABS: Bedside Glucose 324 mg/dL (74-106)
[2022-03-23 23:21] LABS: Anion Gap 14 (5-15); BUN 12 mg/dL (7-18); BUN/Creat Ratio 8.6 RATIO (10-20); Calcium,Total 8.5 mg/dL (8.5-10.1); Chloride 100 mmol/L (98-107); EST Glomerular Filtration Rate 59 mL/min (>60); Est Glom Filt Rate - Afr Amer 71 mL/min (>60); Estimated Creatinine Clearance 74.67 ml/min; Glucose 317 mg/dL (74-106); Potassium 4.1 mmol/L (3.5-5.1); Sodium Level 134 mmol/L (136-145)
[2022-03-24] VITALS (21 sets, daily range): BP systolic 106–145; BP diastolic 64–90; PULSE 74–108; RESP 14–19; TEMP 35.8–36.6; O2SAT 95–98
[2022-03-24 00:55] LABS: Bedside Glucose 256 mg/dL (74-106)
[2022-03-24] MEDS: 0.9% Normal Saline 1,000 ML 125 ML IV (01:37)
[2022-03-24] MEDS: Dext 5%-0.45% NS 1,000 ML 150 ML IV (02:45)
[2022-03-24 02:51] LABS: Bedside Glucose 262 mg/dL (74-106)
[2022-03-24 02:51] LABS: Bedside Glucose 241 mg/dL (74-106)
[2022-03-24] MEDS: 0.9% Saline Lock 10 ML Syringe IV ×2 (02:55→11:50)
[2022-03-24 03:30] LABS: Anion Gap 13 (5-15); BUN 10 mg/dL (7-18); BUN/Creat Ratio 7.8 RATIO (10-20); Chloride 102 mmol/L (98-107); Creatinine, Serum 1.29 mg/dL (0.70-1.30); EST Glomerular Filtration Rate 64 mL/min (>60); Est Glom Filt Rate - Afr Amer 78 mL/min (>60); Estimated Creatinine Clearance 81.04 ml/min; Glucose 279 mg/dL (74-106); Sodium Level 136 mmol/L (136-145)
--- NOTE | 2022-03-24 03:49 | PCM.HOSP.N ---
Hospitalist Note AG closed x 2, will transition to home SC insulin overlap with insulin drip, allow ADA diet transition, d/c drip following and initiate also ISS with [facility] accu checks.
[2022-03-24 04:55] LABS: Absolute Lymphocyte Count 1.62 X10^3/uL (0.83-4.51); Absolute Neutrophil Count 5.8 X10^3/uL (2.0-7.7); Basophil# 0.02 X10^3/uL; Basophil% 0.2 % (0-1); Eosinophil# 0.02 X10^3/uL; Eosinophils% 0.2 % (0-5); Hematocrit 43.9 % (40-54); Hemoglobin 14.8 g/dL (13.0-16.5); Lymphocyte # 1.62 X10^3/ul (0.83-4.51); Lymphocyte % 19.2 % (19-41); Mean Corp Hgb Conc 33.7 g/dL (32-36); Mean Corpuscular Hgb 31.5 pg (27.0-32.0); Mean Corpuscular Volume 93.4 fL (80-94); Mean Platelet Vol. 10.1 fl (6.2-12.0); Monocyte# 0.98 X10^3/uL; Monocyte% 11.6 % (0-10); NRBC Flagged by Analyzer 0 % (0-5); Neutrophil # 5.75 X10^3/uL (2.7-7.7); Neutrophil % 68.2 % (47-70); Platelet Count 179 K/mm3 (150-450); RBC Distribution Width CV 14.3 % (11.6-14.6); RBC Distribution Width SD 48.6 fl (35.1-43.9); White Blood Count 8.4 K/mm3 (4.4-11.0)
[2022-03-24 05:10] LABS: Bedside Glucose 283 mg/dL (74-106)
[2022-03-24 05:10] LABS: Bedside Glucose 285 mg/dL (74-106)
[2022-03-24] MEDS: Insulin Glargine-YFGN 100 UNIT/ML Pen 26 UNIT SC (05:11)
[2022-03-24 05:12] LABS: ALB/GLOB Ratio 0.5 RATIO (0.9-2.4); AST(SGOT) 5 U/L (15-37); Alanine Aminotransfer ALT/SGPT 14 U/L (16-61); Albumin, Serum 2.4 g/dL (3.2-5.0); Alkaline Phosphatase 90 U/L (45-117); Anion Gap 11 (5-15); BUN 9 mg/dL (7-18); BUN/Creat Ratio 7.4 RATIO (10-20); Calcium,Total 8.6 mg/dL (8.5-10.1); Chloride 101 mmol/L (98-107); Creatinine, Serum 1.22 mg/dL (0.70-1.30); EST Glomerular Filtration Rate 69 mL/min (>60); Est Glom Filt Rate - Afr Amer 83 mL/min (>60); Estimated Creatinine Clearance 85.69 ml/min; Globulin 4.5 g/dL (2.2-4.2); Glucose 280 mg/dL (74-106); Protein, Total 6.9 g/dL (6.4-8.2); Sodium Level 134 mmol/L (136-145)
[2022-03-24] MEDS: Insulin Lispro 100 UNIT/ML INSULN.PEN SC ×3 (06:54→17:51)
[2022-03-24 07:16] LABS: Bedside Glucose 298 mg/dL (74-106)
[2022-03-24 07:16] LABS: Bedside Glucose 276 mg/dL (74-106)
[2022-03-24] MEDS: Ceftriaxone 1 GM/50 ML BAG IV (09:00)
[2022-03-24] MEDS: Nystatin Powder 15gm Bottle 1 APPLIC TOPICAL ×2 (09:01→21:12)
[2022-03-24] MEDS: Enoxaparin 30 MG/0.3 ML Syringe SC ×2 (09:01→21:12)
[2022-03-24] MEDS: Pantoprazole Sodium 20 MG Tablet PO (09:02)
--- NOTE | 2022-03-24 09:15 | CASEMGMT ---
MARIA E DAVIS Face to Face with patient for initial transition planning/care coordination assessment. RN RYAN introduced self and role at [facility]. Patient lying in bed, alert and oriented. Patient willing to participate in assessment and is able to answer all questions appropriately. Care providers, pharmacy, and demographics verified. Patient wishes to discharge home, denies need for home health at this time. Patient states he has no further needs or concerns at this time. CM to follow for discharge planning needs that may arise. PCP: Kayce Specialists: none Preferred Pharmacy: [facility] Insurance: [employer], patient states his NIKKIE was cancelled, MARIA E DAVIS updated SW to assist with resources Prescription Benefit: none Living Will/HPOA: none LNOK: Son, parents Living Arrangements: Patient lives with a roommate in a mobile home with 4 steps and railing to enter. Patient is independent at home Transportation: self, son DME/HHC: Patient states he has glucometer with testing supplies and pen needles at home. Patient states he has been out of insulin for 3 weeks as he has no insurance to pay for insulin. SW to provide resources. No previous HHC or SNF Disposition Plan: Patient to discharge home with family support and follow-up plans in place. Mary MAO, RN, CM
[2022-03-24 09:54] LABS: Hemoglobin A1c 13.4 % (3.8-5.6)
--- NOTE | 2022-03-24 09:58 | PN.HOSP_ITS ---
Subjective Subjective Patient seen and examined. He feels much better today. His anion gap has closed and he has been off the drip since ~ 7am today. He has no other complaints and review of systems is otherwise negative. Objective Data Objective Data Vital Signs: Vital Signs Temp Pulse Resp BP Pulse Ox O2 Del Method 96.8 F L 91 15 145/90 H 98 Room Air 03/24/22 09:00 03/24/22 09:00 03/24/22 09:00 03/24/22 09:00 03/24/22 09:00 03/24/22 09:00 Oxygen Delivery Method Room Air Weight: 486 lb 4.801 oz Body Mass Index (BMI) 65.3 Intake & Output: Intake and Output for Last 24 Hours 03/22/22 03/23/22 03/24/22 23:59 23:59 23:59 Intake Total 3308.49 / 3308.49 2056.74 / 2056.74 Output Total 900 / 900 2100 / 2100 Balance 2408.49 / 2408.49 -43.26 / -43.26 Lab / Micro Data Result Diagrams: 03/24/22 04:45 03/24/22 04:45 Labs: Laboratory Results - last 24 hr 03/23/22 14:42: POC Glucose > 500 H* 03/23/22 14:46: POC Glucose > 500 H* 03/23/22 15:15: WBC 10.9, RBC 4.95, Hgb 15.8, Hct 45.8, MCV 92.5, MCH 31.9, MCHC 34.5, RDW Std Deviation 47.5 H, RDW Coeff of Ashanti 14.3, Plt Count 209, MPV 10.3, Immature Gran % (Auto) 0.800, Neut % (Auto) 64.7, Lymph % (Auto) 22.9, [place] % (Auto) 11.3 H, Eos % (Auto) 0.1, Baso % (Auto) 0.2, Absolute Neuts (auto) 7.1, Absolute Lymphs (auto) 2.49, Nucleated RBC % 0 03/23/22 15:15: Sodium 130 L, Potassium 4.1, Chloride 91 L, Carbon Dioxide 16.0 L, Anion Gap 23 H, BUN 10, Creatinine 1.77 H, Estim Creat Clear Calc 59.06, Est GFR (MDRD) Af Amer 54 L, Est GFR (MDRD) Non-Af 45 L, BUN/Creatinine Ratio 5.6 L, Glucose 557 H*, Calcium 9.4, Total Bilirubin 0.60, Direct Bilirubin 0.14, AST 12 L, ALT 17, Alkaline Phosphatase 107, Troponin I High Sens 14, Total Protein 8.0, Albumin 2.9 L, Globulin 5.1 H, Lipase 117 03/23/22 15:15: Acetone Level MODERATE H 03/23/22 16:05: Urine Color Yellow, Urine Clarity Sl. Cloudy, Urine pH 6.0, Ur Specific Ashford 1.015, Urine Protein 30 H, Urine Glucose (UA) 1000 H, Urine Ketones 150 A*, Urine Occult Blood 10 H, Urine Nitrite Negative, Urine Bilirubin 1 H, Urine Urobilinogen 1 H, Ur Leukocyte Esterase 500 H, Urine RBC 0-5 SEEN, Urine WBC 10-25 SEEN, Ur Squamous Epith Cells 0 SEEN, Urine Bacteria 1+, Urine Mucus 0 SEEN 03/23/22 17:20: POC Glucose > 500 H* 03/23/22 18:14: POC Glucose > 500 H* 03/23/22 19:35: Sodium 130 L, Potassium 4.3, Chloride 94 L, Carbon Dioxide 18.0 L, Anion Gap 18 H, BUN 13, Creatinine 1.66 H, Estim Creat Clear Calc 62.98, Est GFR (MDRD) Af Amer 58 L, Est GFR (MDRD) Non-Af 48 L, BUN/Creatinine Ratio 7.8 L, Glucose 545 H*, Calcium 8.8 03/23/22 19:36: POC Glucose > 500 H* 03/23/22 20:33: POC Glucose 434 H 03/23/22 21:35: POC Glucose 324 H 03/23/22 22:31: POC Glucose 311 H 03/23/22 23:00: Sodium 134 L, Potassium 4.1, Chloride 100, Carbon Dioxide 20.0 L , Anion Gap 14, BUN 12, Creatinine 1.40 H, Estim Creat Clear Calc 74.67, Est GFR (MDRD) Af Amer 71, Est GFR (MDRD) Non-Af 59 L, BUN/Creatinine Ratio 8.6 L, Glucose 317 H, Calcium 8.5 03/24/22 00:35: POC Glucose 256 H 03/24/22 01:31: POC Glucose 262 H 03/24/22 02:31: POC Glucose 241 H 03/24/22 02:55: Sodium 136, Potassium 4.0, Chloride 102, Carbon Dioxide 21.0, Anion Gap 13, BUN 10, Creatinine 1.29, Estim Creat Clear Calc 81.04, Est GFR (MDRD) Af Amer 78, Est GFR (MDRD) Non-Af 64, BUN/Creatinine Ratio 7.8 L, Glucose 279 H, Calcium 9.0 03/24/22 03:33: POC Glucose 285 H 03/24/22 04:45: WBC 8.4, RBC 4.70, Hgb 14.8, Hct 43.9, MCV 93.4, MCH 31.5, MCHC 33.7, RDW Std Deviation 48.6 H, RDW Coeff of Ashanti 14.3, Plt Count 179, MPV 10.1, Immature Gran % (Auto) 0.600, Neut % (Auto) 68.2, Lymph % (Auto) 19.2, [place] % (Auto) 11.6 H, Eos % (Auto) 0.2, Baso % (Auto) 0.2, Absolute Neuts (auto) 5.8, Absolute Lymphs (auto) 1.62, Nucleated RBC % 0 03/24/22 04:45: Sodium 134 L, Potassium 4.0, Chloride 101, Carbon Dioxide 22.0, Anion Gap 11, BUN 9, Creatinine 1.22, Estim Creat Clear Calc 85.69, Est GFR (MDRD) Af Amer 83, Est GFR (MDRD) Non-Af 69, BUN/Creatinine Ratio 7.4 L, Glucose 280 H, Calcium 8.6, Total Bilirubin 0.40, AST 5 L, ALT 14 L, Alkaline Phosphatase 90, Total Protein 6.9, Albumin 2.4 L, Globulin 4.5 H, Albumin/Globulin Ratio 0.5 L 03/24/22 04:45: Hemoglobin A1c 13.4 H 03/24/22 04:48: POC Glucose 283 H 03/24/22 05:35: POC Glucose 276 H 03/24/22 06:51: POC Glucose 298 H ABG Data ABG results: ABG 03/23/22 16:07 Specimen Type IVETTE VBG pH 7.33 VBG pO2 80 H VBG HCO3 13 L VBG Total CO2 14 L VBG O2 Sat (Calc) 95 H VBG Base Excess -13 L POC Mix VBG pCO2 Pt Tmp 24.8 L O2 Delivery Device Room Air Radiography Diagnostic Testing: Radiology Impression Chest X-Ray 03/23/22 15:30 IMPRESSION: No radiographic evidence of acute cardiopulmonary disease. Electronically Signed: Aristeo Lowery MD at 15:50 EDT , Rhythm Strip Rhythm Strip: Sinus Rhythm Rate: 98 Ectopy: None Physical Exam Const alert, oriented x3 and no apparent distress Constitutional Narrative: super morbid obesity General Appearance: cooperative HEENT normocephalic, head/scalp atraumatic, hearing grossly normal bilaterally and moist oral mucous membranes Eyes PERRL, EOMs intact bilaterally and conjunctivae normal Neck no lymphadenopathy and supple Resp normal respiratory effort, no retractions, no use of accessory muscles and clear to auscultation bilaterally Cardio regular rate, regular rhythm, S1 normal heart sound, S2 normal heart sound and no murmurs GI normal to inspection, nondistended, normoactive bowel sounds, soft to palpation and non-tender GI Narrative: obese abdomen Extremity normal to inspection, full ROM and no clubbing, cyanosis or edema Neuro oriented x3, CN's II-XII intact bilaterally, moves all extremities and no focal motor deficits Sensorium / Orientation: awake and alert Motor Exam: strength 5/5 throughout Psych affect normal Assessment & Plan Assessment/Plan (1) DKA (diabetic ketoacidoses): (2) UTI (urinary tract infection): (3) High anion gap metabolic acidosis: PLAN: Plan #DKA due to noncompliance with insulin * anion gap has closed. * blood sugar down to 280 this morning * will transition to home dose of insulin * ISS. Accuchecks ACHS * started on 1800calorie diabetic diet * A1C is 13.4 * #UTI * on IV ceftriaxone * urine culture pending * * #MOISES: * resolved. Cr is down to 1.22, from 1.77 * #High anion gap metabolic acidosis * resolved. * #Hypertension * on lisinopril.resume lisinopril which was held o/a of MOISES * * #HYperlipidemia: on atorvastatin * * DVT prophylaxis: lovenox, renally dosed Code status: full code Disposition: transfer to med surg today Charges/Coding Visit Charges Inpatient E&M: 30878 Subs Hosp L2
--- NOTE | 2022-03-24 10:35 | NURSING ---
report called to MARIA E Simental in pcu at this time
--- NOTE | 2022-03-24 10:44 | CASEMGMT ---
Social Work SW met with pt and introduced self and role of SW. Pt assessed for social needs. Housing: Pt states he lives with a friend and has no concerns with eviction nor rent payment Food Insecurity: Pt denies any food insecurities at this time Transportation: Pt states he has a car and drives and has no transportation concerns Finances: Pt denies concerns Employment: Pt does not currently work HealthCare accessibilty: Pt states he has been seeing Dr. Devries for the last three years and has gone to all appointments. Pt denies problems with healthcare access. Pharmacy used is [facility]. Health Insurance: Pt states he moved to [place] from [place] about 4 years ago. Pt has been on [place] Medicaid since that time. Per pt, his physician office attempted to refill prescriptions and was told that pt did not have insurance coverage at this time. REGINA called [facility] with pt present. REGINA spoke with case investigator who states pt's benefits have been cancelled because it was discovered that pt has an open case in [place]. Battery Checker states pt will need to cancel services in the county he lived in while in [place] and have a cancellation letter sent to [facility]. Once this is complete pt will need to reapply for [place] Medicaid. Pt present during discussion and understanding of explanation. Pt denies having open case in [place]. Pt states he lived in [facility]. While in pt room, phone call placed to [facility]. SW left message following prompts requesting call back to the patient explaining what the problem is and request to close [place] case and send letter of closure. Pt present during this process. REGINA did wait on hold to speak to a live person at [facility] for over an hour with no response. Pt aware of process that needs to take place to reinstate insurance. Written information including phone number for [facility] and [place] Medicaid application provided. Prescription assistance: REGINA provided pt with prescription assistance program information along with Meryl Azevedo and [employer] information. [facility] prescription assistance program initiated. MARCELLUS Resendez
[2022-03-24] MEDS: Ondansetron 4 MG/2 ML Vial IV (11:46)
[2022-03-24 12:00] LABS: Bedside Glucose 436 mg/dL (74-106)
[2022-03-24] MEDS: Lisinopril 20 MG Tablet PO (13:14)
[2022-03-24 16:56] LABS: Bedside Glucose 465 mg/dL (74-106)
[2022-03-24 17:18] LABS: Glucose 435 mg/dL (74-106)
--- NOTE | 2022-03-24 20:31 | PCM.HOSP.N ---
Hospitalist Note Patient with notably elevated BS, will increase home long-acting regimen; however, likely will need further increase and potentially BID transition. Will also dose with lispro 20 u x 1 now.
[2022-03-24] MEDS: Insulin Glargine-YFGN 100 UNIT/ML Pen 35 UNIT SC (20:54)
[2022-03-24] MEDS: Insulin Lispro 100 UNIT/ML INSULN.PEN 20 UNIT SC (20:54)
[2022-03-24 21:01] LABS: Bedside Glucose > 500 mg/dL (74-106)
[2022-03-24] MEDS: Acetaminophen 325 MG Tablet 650 MG PO (21:12)
[2022-03-24] MEDS: Atorvastatin Calcium 20 MG Tablet PO (21:13)
[2022-03-25 00:02] LABS: Glucose 395 mg/dL (74-106)
[2022-03-25 02:56] VITALS: PULSE 85
[2022-03-25 03:20] VITALS: BP 123/82; PULSE 89; RESP 18; TEMP 36.1; O2SAT 100
[2022-03-25 06:27] LABS: Absolute Lymphocyte Count 1.73 X10^3/uL (0.83-4.51); Absolute Neutrophil Count 3.9 X10^3/uL (2.0-7.7); Basophil# 0.03 X10^3/uL; Basophil% 0.4 % (0-1); Eosinophil# 0.04 X10^3/uL; Eosinophils% 0.6 % (0-5); Hematocrit 41.9 % (40-54); Hemoglobin 14.5 g/dL (13.0-16.5); Lymphocyte # 1.73 X10^3/ul (0.83-4.51); Lymphocyte % 25.3 % (19-41); Mean Corp Hgb Conc 34.6 g/dL (32-36); Mean Corpuscular Hgb 32.2 pg (27.0-32.0); Mean Corpuscular Volume 93.1 fL (80-94); Mean Platelet Vol. 10.7 fl (6.2-12.0); Monocyte# 1.06 X10^3/uL; Monocyte% 15.5 % (0-10); NRBC Flagged by Analyzer 0 % (0-5); Neutrophil # 3.94 X10^3/uL (2.7-7.7); Neutrophil % 57.8 % (47-70); Platelet Count 160 K/mm3 (150-450); RBC Distribution Width CV 14.5 % (11.6-14.6); RBC Distribution Width SD 48.8 fl (35.1-43.9); White Blood Count 6.8 K/mm3 (4.4-11.0)
[2022-03-25 06:57] LABS: Anion Gap 12 (5-15); BUN 7 mg/dL (7-18); BUN/Creat Ratio 7.7 RATIO (10-20); Calcium,Total 9.1 mg/dL (8.5-10.1); Chloride 95 mmol/L (98-107); Creatinine, Serum 0.91 mg/dL (0.70-1.30); EST Glomerular Filtration Rate 96 mL/min (>60); Est Glom Filt Rate - Afr Amer 116 mL/min (>60); Estimated Creatinine Clearance 114.88 ml/min; Glucose 321 mg/dL (74-106); Potassium 3.7 mmol/L (3.5-5.1); Sodium Level 133 mmol/L (136-145)
[2022-03-25 07:00] VITALS: PULSE 86
[2022-03-25 08:41] VITALS: BP 130/74; PULSE 87; RESP 18; TEMP 36.4; O2SAT 100
[2022-03-25] MEDS: Insulin Lispro 100 UNIT/ML INSULN.PEN SC ×4 (08:54→12:21)
[2022-03-25] MEDS: Enoxaparin 30 MG/0.3 ML Syringe SC (08:56)
[2022-03-25] MEDS: Insulin Glargine-YFGN 100 UNIT/ML Pen 35 UNIT SC (08:56)
[2022-03-25] MEDS: Nystatin Powder 15gm Bottle 1 APPLIC TOPICAL (08:57)
[2022-03-25] MEDS: 0.9% Saline Lock 10 ML Syringe IV (08:58)
[2022-03-25] MEDS: Pantoprazole Sodium 20 MG Tablet PO (08:58)
[2022-03-25] MEDS: Lisinopril 20 MG Tablet PO (08:58)
[2022-03-25] MEDS: Ceftriaxone 1 GM/50 ML BAG IV (09:02)
[2022-03-25 11:21] LABS: Glucose 408 mg/dL (74-106)
--- NOTE | 2022-03-25 11:43 | DS.PCM_ITS ---
Providers Date of Admission: 03/23/22 Date of Discharge: 03/25/22 Primary Care Physician: Dr. Geena Paez MD Consultations 03/23/22 18:48 Consult: Principal Account Clerk / Pulmonary Medicine Routine Consulting Provider: Pulmonary Medicine irving [place] Reason for Consult: DKA EMERGENT Consult: No MD Notified: Yes Date Notified: 03/23/22 Time Notified: 18:52 Method of Notification: Text Reason For Visit: DKA Diagnosis Discharge Diagnosis (1) DKA (diabetic ketoacidoses): Status: Acute Code(s): E11.10 - Type 2 diabetes mellitus with ketoacidosis without coma (2) UTI (urinary tract infection): Status: Acute Code(s): N39.0 - Urinary tract infection, site not specified (3) High anion gap metabolic acidosis: Status: Acute Code(s): E87.2 - Acidosis Plan #DKA due to noncompliance with insulin * anion gap has closed. * blood sugar down to 280 this morning * will transition to home dose of insulin * ISS. Accuchecks ACHS * started on 1800calorie diabetic diet * A1C is 13.4 * #UTI * on IV ceftriaxone * urine culture pending * * #MOISES: * resolved. Cr is down to 1.22, from 1.77 * #High anion gap metabolic acidosis * resolved. * #Hypertension * on lisinopril.resume lisinopril which was held o/a of MOISES * * #HYperlipidemia: on atorvastatin * * DVT prophylaxis: lovenox, renally dosed Code status: full code Disposition: transfer to med surg today Medications at Discharge Home Medications blood-glucose meter #1 ea 06/29/20 insulin needles (disposable) 30 X 3/4 ##1 06/29/20 Paul Barillas I #1 ea 08/03/20 omeprazole 20 mg capsule,delayed release 20 mg PO DAILY 03/23/22 atorvastatin 20 mg tablet 20 mg PO QHS #30 tabs 03/25/22 blood sugar diagnostic (OneTouch Verio test strips) #100 ea 03/25/22 insulin glargine 100 unit/mL (3 mL) subcutaneous pen (Lantus Solostar U-100 Insulin) 35 unit (0.35 mL) subcut QPM #15 mL 03/25/22 insulin lispro 100 unit/mL subcutaneous pen 20 unit (0.2 mL) subcut TIDCM #20 mL 03/25/22 lancets 30 gauge (OneTouch Delica Lancets) #200 ea 03/25/22 lisinopril 20 mg tablet 20 mg PO DAILY #90 tabs 03/25/22 pen needle, diabetic 33 gauge x 5/32 (Advocate Pen Needle) #100 ea 03/25/22 Hospital Course Operations None Procedures None Summary of Care Provided Minutes Spent on Discharge: 45 Hospital Course: PAUL BARILLAS, is a 41 M with a PMH as outlined who presents via the ED on 03/23/2022 with a complaint of generalised malaise and weakness. He is a known diabetic who has been out of his insulin for the last couple of weeks, as he says he had problems with his insurance. He complains of some generalised malaise, weakness, chest discomfort with nausea, vomiting, cosntipation and headache. He has not been eating or drinking well. He called his PCP, and was told to come in to the ED.? He denies any fever or chills. REview of systems is otherwise negative. Vitals in the ED were VT of 89, RR 0of 19, and she was saturating at 97% on room air. CBC was unremarkable, and BMP showed sodium of 130, potassium of 4.1, bicarb of 16 and Cr of 1.77. Blood sugar was 557 and initial troponin was 14. Urinalysis showed leucocyte esterase of 500 and bacteria of 1+. Anion gap was 23. He was admitted to be managed for DKA and MOISES as well as UTI. He was hydrated with IVF and put on insulin drip. He was admitted to the ICU. Critical care was consulted. He was placed on IV ceftriaxone for UTI. Anion gap closed and he felt much better. He w s placed on his home dose of insulin. His A1C was ~ 13, indicating noncompliance with insulin at least over the preceding 3 months. He was also treated with IV ceftriaxone for UTI. Urine culture was however negative so antibiotics were discontinued at discharge. Patient remained stable and was discharged home on 03/25/2022. He was counseled to be compliant with his home dose of insulin was given a prescription for this. He was referred to endocrinology on outpatient basis as well. His lantus dose was increased to 35 units qpm. Patient seen and examined prior to discharge. He had no active complaints and had an uneventful night. Review of systems otherwise negative. Labs and vitals reviewed. Home medication reviewed and reconciled. Physical Exam Const alert, oriented x3 and no apparent distress Constitutional Narrative: super morbid obesity General Appearance: cooperative and comfortable Orientation / Consciousness: awake Exam Limitations: no limitations HEENT normocephalic, head/scalp atraumatic, hearing grossly normal bilaterally and moist oral mucous membranes Mouth: oral and palatal mucosa normal Eyes PERRL, EOMs intact bilaterally and conjunctivae normal Neck no lymphadenopathy, supple and no JVD Resp normal respiratory effort, no retractions, no use of accessory muscles and clear to auscultation bilaterally Cardio regular rate, regular rhythm, S1 normal heart sound, S2 normal heart sound and no murmurs GI normal to inspection, nondistended, normoactive bowel sounds, soft to palpation and non-tender GI Narrative: obese abdomen Extremity normal to inspection, full ROM and no clubbing, cyanosis or edema Skin no rashes or lesions noted Neuro oriented x3, CN's II-XII intact bilaterally, moves all extremities and no focal motor deficits Sensorium / Orientation: awake and alert Motor Exam: strength 5/5 throughout Psych affect normal Weight / BMI Weight Weight: 485 lb 10.853 oz Body Mass Index (BMI) 65.3 ABG / Lab / Microbiology Data Result Diagrams: 03/25/22 05:30 03/25/22 05:30 Laboratory: Laboratory Results - last 24 hr 03/24/22 11:32: POC Glucose 436 H 03/24/22 16:29: POC Glucose 465 H* 03/24/22 16:45: Glucose 435 H 03/24/22 20:24: POC Glucose > 500 H* 03/24/22 20:30: Glucose 408 H 03/24/22 23:10: Glucose 395 H 03/25/22 05:30: WBC 6.8, RBC 4.50 L, Hgb 14.5, Hct 41.9, MCV 93.1, MCH 32.2 H, M CHC 34.6, RDW Std Deviation 48.8 H, RDW Coeff of Ashanti 14.5, Plt Count 160, MPV 10.7, Immature Gran % (Auto) 0.400, Neut % (Auto) 57.8, Lymph % (Auto) 25.3, [place] % (Auto) 15.5 H, Eos % (Auto) 0.6, Baso % (Auto) 0.4, Absolute Neuts (auto) 3.9, Absolute Lymphs (auto) 1.73, Nucleated RBC % 0 03/25/22 05:30: Sodium 133 L, Potassium 3.7, Chloride 95 L, Carbon Dioxide 26.0, Anion Gap 12, BUN 7, Creatinine 0.91, Estim Creat Clear Calc 114.88, Est GFR (MDRD) Af Amer 116, Est GFR (MDRD) Non-Af 96, BUN/Creatinine Ratio 7.7 L, Glucose 321 H, Calcium 9.1 Microbiology: Microbiology 03/23/22 16:05 Urine, Clean Catch Urine Culture - Preliminary Culture exhibits no growth. D/C Instructions Discharge Diet: Low fat / Low cholesterol and 1800 Calorie Control Diet Discharge Activity: Return to Normal Activity Weight Bearing Status: Weight bearing as tolerated Call your doctor if you observe: Fever of 101 or Higher, Shortness of breath, Dizziness, Swelling in the ankles, Chest pain and Increased palpitations (irr egular heartbeat) Meaningful Use Info Meaningful Use Diagnoses (Choose all that apply): None applicable Discharge Plan Admission Admit Date/Time: 03/23/22 17:09 Primary Reason for Your Visit: DKA, anion gap metabolic acidosis Attending Provider: Eleonora Bowman Primary Care Provider: Geena Paez Consulting Providers: Alverto Perez ; Mp Gentile ; Romulo Arnold ; Rhys Pompa ; Adriane Collins RECORDS MANAGEMENT DIRECTOR Instructions Patient Instructions: Ketoacidosis Ch Discharge Orders/Prescriptions Prescriptions: New insulin glargine [Lantus Solostar U-100 Insulin] 100 unit/mL (3 mL) insulin pen 35 unit subcut QPM Qty: 15 5RF Continued (DME) insulin needles (disposable) 30 X 3/4 30 X 3/4 needle See Rx Instructions .ROUTE .MEDSUPPLY Qty: 1 Rx Instructions: As directed (DME) Paul Barillas See Rx Instructions .Route .MEDSUPPLY Qty: 1 0RF Rx Instructions: CPAP SUPPLIES - HOSE, MASK, FILTERS, HARNESS. NEEDS A NEW TANK WELL. omeprazole 20 mg Capsule,Delayed Release(Dr/Ec) 20 mg PO DAILY (DME) OneTouch Verio test strips Strip See Rx Instructions .ROUTE .MEDSUPPLY Qty: 100 3RF Rx Instructions: As directed, check glucose QID (DME) lancets [OneTouch Delica Lancets] 30 gauge misc See Rx Instructions .ROUTE .MEDSUPPLY Qty: 200 4RF Rx Instructions: As directed (DME) pen needle, diabetic [Advocate Pen Needle] 33 gauge x 5/32 needle See Rx Instructions .ROUTE .MEDSUPPLY Qty: 100 3RF Rx Instructions: As directed 4 times daily for type 2 DM atorvastatin 20 mg tablet 20 mg PO QHS Qty: 30 2RF lisinopril 20 mg tablet 20 mg PO DAILY Qty: 90 2RF insulin lispro 100 unit/mL insulin pen 20 unit SC TIDCM Qty: 20 3RF Rx Instructions: 24 units with breakfast, 24 units with lunch and 28 with dinner (DME) blood-glucose meter Kit See Rx Instructions .ROUTE .MEDSUPPLY Qty: 1 0RF Rx Instructions: As directed Discontinued insulin glargine 100 unit/mL (3 mL) insulin pen 26 unit SC QPM Referrals / Follow Up: Geena Paez MD [Primary Care Provider] - Within 1 Week Anjum Wheeler MD [Med Staff - Courtesy Staff] - Within 1 Month (see to establish care for diabetes) Disposition Disposition (needs filled in before D/C Order can be placed): Home, Self Care Charges/Coding Visit Charges Inpatient E&M: 52455 Disch Hosp
--- NOTE | 2022-03-25 12:57 | CASEMGMT ---
Pt has been independent in room and states no concerns with going home at discharge. [facility] rx assist already completed and tubed to pharmacy. Call to pharmacy to notify of rx assist and Fern voices understanding. Patricia SANDERSON CM
--- NOTE | 2022-03-25 13:23 | CASEMGMT ---
Patient asked to talk with REGINA. SW met with patient, introduced self and role at [facility]. Patient said he spoke with [facility] and they said his case is closed and it should be in the system. REGINA called [place] Medicaid and SW was told that they must have a copy of the closure letter as they do not have access to [facility] system. REGINA told patient that he has to have a copy of the closure letter sent to [facility]. REGINA High had given patient the fax number for [facility]. Viv Adams COP ROCAEL
[2022-03-25 14:26] LABS: Bedside Glucose 330 mg/dL (74-106)
[2022-03-25 14:26] LABS: Bedside Glucose 410 mg/dL (74-106)
[2022-03-25 14:40] VITALS: BP 126/79; PULSE 97; RESP 14; TEMP 36.7; O2SAT 97
[2022-03-25 16:00] VITALS: BP 126/79; PULSE 97; RESP 14; TEMP 36.7; O2SAT 97
[2022-03-25 16:06] LABS: Bedside Glucose 394 mg/dL (74-106)
--- NOTE | 2022-03-25 16:53 | NURSING ---
Reviewed charting with Cas Key RN
== END 2022-03-25 17:22 | disposition home or self-care (01) | DRG 638 ==
LOC: ED 15:58 → ICU 22:55 → PCU 03-24 11:03
PROVIDERS: Family Medicine; Admitting Provider Student in an Organized Health Care Education/Training Program; Emergency Provider Emergency Medicine; PCP Internal Medicine; Visit Provider Student in an Organized Health Care Education/Training Program
DX: E11.10 Type 2 diabetes mellitus with ketoacidosis without coma (principal); N17.9 Acute kidney failure, unspecified; Z68.44 Body mass index [BMI] 60.0-69.9, adult; N39.0 Urinary tract infection, site not specified; E11.65 Type 2 diabetes mellitus with hyperglycemia; E66.01 Morbid (severe) obesity due to excess calories; E78.5 Hyperlipidemia, unspecified; I10 Essential (primary) hypertension; F17.210 Nicotine dependence, cigarettes, uncomplicated; Z51.5 Encounter for palliative care; Z66 Do not resuscitate; Z79.84 Long term (current) use of oral hypoglycemic drugs; Z91.14 Patient's other noncompliance with medication regimen
CPT/HCPCS: 36415; 71046; 80048; 80053; 80076; 81001; 82009; 82803; 82947; 82962; 83036; 83690; 84484; 85025; 87086; 93005; 97802; 99284; J7030; 90686; A4216; J2405; J3490; J7799

== ENCOUNTER → 2022-10-07 | Outpatient (CLI) | payer MEDICAID, SELFPAY ==
[2022-10-07 12:59] LABS: Absolute Lymphocyte Count 3.07 X10^3/uL (0.83-4.51); Absolute Neutrophil Count 6.8 X10^3/uL (2.0-7.7); Basophil# 0.03 X10^3/uL; Basophil% 0.3 % (0-1); Eosinophil# 0.06 X10^3/uL; Eosinophils% 0.6 % (0-5); Hematocrit 40.7 % (40-54); Hemoglobin 13.3 g/dL (13.0-16.5); Lymphocyte # 3.07 X10^3/ul (0.83-4.51); Lymphocyte % 28.6 % (19-41); Mean Corp Hgb Conc 32.7 g/dL (32-36); Mean Corpuscular Hgb 30.6 pg (27.0-32.0); Mean Corpuscular Volume 93.6 fL (80-94); Mean Platelet Vol. 11.1 fl (6.2-12.0); Monocyte# 0.75 X10^3/uL; NRBC Flagged by Analyzer 0 % (0-5); Neutrophil # 6.81 X10^3/uL (2.7-7.7); Neutrophil % 63.2 % (47-70); Platelet Count 292 K/mm3 (150-450); RBC Distribution Width CV 13.7 % (11.6-14.6); RBC Distribution Width SD 46.8 fl (35.1-43.9); Red Blood Count 4.35 M/mm3 (4.6-6.2); White Blood Count 10.8 K/mm3 (4.4-11.0)
[2022-10-07 13:05] LABS: Insulin 41.2 mU/L (2.6-37.6); Vitamin B12 400 pg/mL (211-911); Vitamin D,25 Hydroxy 10.1 ng/mL
[2022-10-07 13:17] LABS: ALB/GLOB Ratio 0.5 RATIO (0.9-2.4); AST(SGOT) 14 U/L (15-37); Alanine Aminotransfer ALT/SGPT 21 U/L (16-61); Albumin, Serum 2.6 g/dL (3.2-5.0); Alkaline Phosphatase 101 U/L (45-117); Anion Gap 5 (5-15); BUN 12 mg/dL (7-18); BUN/Creat Ratio 13.8 RATIO (10-20); Calcium,Total 8.9 mg/dL (8.5-10.1); Chloride 103 mmol/L (98-107); Cholesterol 99 mg/dL (200); Creatinine, Serum 0.87 mg/dL (0.70-1.30); EST Glomerular Filtration Rate 101 mL/min (>60); Est Glom Filt Rate - Afr Amer 123 mL/min (>60); Glucose 111 mg/dL (74-106); High Density Lipoprotein 35 mg/dL; Potassium 4.2 mmol/L (3.5-5.1); Protein, Total 7.6 g/dL (6.4-8.2); Sodium Level 138 mmol/L (136-145); Thyroid Stim Hormone (TSH) 1.45 uIU/mL (0.358-3.74); Triglycerides 43 mg/dL; Very Low Density Lipoprotein 9 mg/dL (5-40)
== END | disposition home or self-care (01) ==
LOC: BIMLAB 09:30
PROVIDERS: PCP Internal Medicine; Referring Provider Internal Medicine; Visit Provider Internal Medicine
DX: E78.5 Hyperlipidemia, unspecified (principal); E11.9 Type 2 diabetes mellitus without complications; I10 Essential (primary) hypertension; Z13.220 Encounter for screening for lipoid disorders; E53.8 Deficiency of other specified B group vitamins; E55.9 Vitamin D deficiency, unspecified
CPT/HCPCS: 36415; 80053; 80061; 82306; 82607; 83525; 84443; 85025

== ENCOUNTER → 2022-11-04 | Outpatient (CLI) | payer MEDICAID, SELFPAY ==
--- NOTE | 2022-11-04 17:51 | RAD_ITS ---
STUDY: X-RAY - CERVICAL SPINE REASON FOR EXAM: Male, 42 years old. CERVICAL STRAIN TECHNIQUE: 5 view(s) of the cervical spine were obtained. COMPARISON: None FINDINGS: Normal anterior atlantoaxial articulation. Normal odontoid process. Normal cervical lordosis. Normal vertebral bodies and endplates. Normal disc space heights. Normal visualized intervertebral neuroforamina. The soft tissue structures are unremarkable. RAD/Cerv Spine 4 or 5 Views IMPRESSION: Normal x-ray examination of the visualized cervical spine. Electronically Signed: Roberto Mitchell MD at 21:25 EDT ,
== END | disposition home or self-care (01) ==
PROVIDERS: PCP Internal Medicine; Referring Provider Chiropractor; Visit Provider Chiropractor
DX: S16.1XXA Strain of muscle, fascia and tendon at neck level, initial encounter (principal)
CPT/HCPCS: 72050

== ENCOUNTER → 2022-12-20 | Outpatient (CLI) | payer MEDICAID, SELFPAY | END | disposition home or self-care (01) | LOC: SL 11:00 | PROVIDERS: PCP Internal Medicine; Visit Provider Internal Medicine | DX: G47.33 Obstructive sleep apnea (adult) (pediatric) (principal) ==

== ENCOUNTER 2023-05-16 09:40 | Emergency (ER) | payer MEDICAID, SELFPAY ==
[2023-05-16 09:41] VITALS: BP 174/90; PULSE 74; RESP 18; TEMP 36.1; O2SAT 100
--- NOTE | 2023-05-16 09:52 | EDS_ITS ---
HPI History of Present Illness Chief Complaint: General Illness Informant: patient Narrative Narrative: Patient presents secondary to not feeling well since last May 10. Patient states his right eye was red and itchy and he felt more fatigued than normal. He had some slight shortness of breath. He had decreased appetite but did eat enough to take his diabetes meds. He did not note fever or chills. He states he had some slight burning with urination but that is improved currently. He called his PCP today for follow-up and they advised him to come in. He states overall he is feeling improved but just wanted to be checked. He thinks his blood sugar may have been high but did not check it at home. He did not take a COVID or flu test. [facility] Medical History (Updated 05/16/23 @ 10:[address] Nora Brenner MD) Diabetes Hyperlipemia Hypertension Noncompliance with medications Home Medications blood-glucose meter #1 ea 06/29/20 [Rx Last Taken Unknown] insulin needles (disposable) 30 X 3/4 ##1 06/29/20 [History Last Taken Unknown] Paul Barillas I #1 ea 08/03/20 [Rx Last Taken Unknown] alcohol swabs (Alcohol Prep Pads) 1 pad topical .qid #200 ea 04/21/22 [Rx Last Taken Unknown] blood sugar diagnostic (OneTouch Verio test strips) #100 ea 04/21/22 [Rx Last Taken Unknown] insulin glargine 100 unit/mL (3 mL) subcutaneous pen (Lantus Solostar U-100 Insulin) 26 unit (0.26 mL) subcut QPM #15 mL 04/21/22 [Rx Last Taken Unknown] lancets 30 gauge ([employer]ROO[employer]Touch Delica Lancets) #200 ea 04/21/22 [Rx Last Taken Unknown] omeprazole 20 mg capsule,delayed release 20 mg PO DAILY reflux #90 caps 04/21/22 [Rx Last Taken Unknown] pen needle, diabetic 33 gauge x 5/32 (Advocate Pen Needle) #200 ea 04/21/22 [Rx Last Taken Unknown] clotrimazole-betamethasone 1 %-0.05 % topical cream 1 applic topical BID #30 grams 08/31/22 [Rx Last Taken Unknown] atorvastatin 20 mg tablet 20 mg PO QHS #90 tabs 12/12/22 [Rx Last Taken Unknown] lisinopril 20 mg tablet 20 mg PO DAILY #90 tabs 12/12/22 [Rx Last Taken Unknown] medical gummies PO 12/12/22 [History Last Taken Unknown] insulin lispro 100 unit/mL subcutaneous pen 20 unit (0.2 mL) subcut TIDCM #15 mL 01/12/23 [Rx Last Taken Unknown] Allergy/AdvReac Type Severity Reaction Status Date / Time No Known Allergies Allergy Verified 05/16/23 09:41 Family History Grandmother Diabetes Uncle Diabetes Grandmother Heart disease Aunt Heart disease Father Cancer prostate Surgical History right shoulder Social History Smoking Status: Current every day smoker tobacco type: cigarettes alcohol intake: former substance use type: does not use ROS ROS ED Constitutional Constitutional ED: Denies chills or fever(s) Eyes Eyes: Reports other Details: Erythema and itchiness to right eye. ; Denies change in vision ENT ENT ED: Denies rhinorrhea or sore throat Cardiovascular Cardiovascular: Denies chest pain or palpitations Respiratory/Chest Respiratory/Chest: Reports dyspnea; Denies cough Gastrointestinal Gastrointestinal: Denies abdominal pain, diarrhea, nausea or vomiting Genitourinary Genitourinary ED: Reports dysuria Musculoskeletal Musculoskeletal: Reports myalgias; Denies back pain or extremity pain Integumentary Denies Abrasions or rash Neurologic Neurologic: Denies headache(s) or weakness Psychiatric Psychiatric: Denies anxiety or depression Allergic/Immunologic Allergic/Immunologic ED: Denies lip swelling or urticaria EXAM Physical Exam Const Vital Signs: 05/16/23 09:41 05/16/23 09:56 Temperature 96.9 F L Temperature Source Temporal Pulse Rate 74 Respiratory Rate 18 Respiratory Effort Short of Breath Labored Respiratory Pattern Tachypnea Blood Pressure 174/90 H Blood Pressure Mean 118 Pulse Ox 100 Oxygen Delivery Method Room Air Positive well nourished and well developed General Appearance ED: well developed HEENT Reports moist mucous membranes Eyes EOMs intact bilaterally Eyes Narrative: Minimal injection to the right eye. No periorbital edema or erythema. Chest Wall inspection of chest normal and palpation of chest normal Resp normal respiratory effort and clear to auscultation bilaterally Cardio regular rate and regular rhythm GI non-tender Palpation: soft Neuro oriented x3 and no sensory deficits noted Motor Exam: strength 5/5 throughout Skin no rashes or lesions noted MDM MDM MDM Narrative Medical decision making narrative: We discussed doing a COVID and influenza test, however patient's symptom onset was already greater than 5 days ago and he has been quarantining himself. I do not feel that this would change his recommendations or outcome. We will check a CBC and BMP to evaluate his blood sugar and renal function. Portable chest x- ray will be obtained given his slight shortness of breath. Lab Data Attestation: I reviewed the patient's lab results. Labs: Laboratory Results - last 24 hr 05/16/23 10:10 WBC 11.1 H RBC 4.27 L Hgb 12.6 L Hct 38.6 L MCV 90.4 MCH 29.5 MCHC 32.6 RDW Std Deviation 53.4 H RDW Coeff of Ashanti 16.1 H Plt Count 262 MPV 10.1 Immature Gran % (Auto) 0.500 Neut % (Auto) 65.5 Lymph % (Auto) 25.5 [place] % (Auto) 7.5 Eos % (Auto) 0.7 Baso % (Auto) 0.3 Absolute Neuts (auto) 7.3 Absolute Lymphs (auto) 2.83 Nucleated RBC % 0 Sodium 139 Potassium 3.9 Chloride 105 Carbon Dioxide 32.0 Anion Gap 2 L BUN 10 Creatinine 0.75 Estim Creat Clear Calc 137.96 Est GFR (MDRD) Af Amer 145 Est GFR (MDRD) Non-Af 120 BUN/Creatinine Ratio 13.4 Glucose 112 H Calcium 8.4 L Treatment and Re-Evaluation :: CBC was a white count 11.1 with a hemoglobin of 12.6. Chemistry studies reveal normal potassium at 3.9. His BUN and creatinine are 10 and 0.75 respectively. Glucose is 112. Portable chest x-ray per my interpretation reveals chronic changes with no focal infiltrate. Patient reassured with these findings. I do believe he had viral syndrome whether it be COVID or otherwise, however symptoms been ongoing for greater than 5 days and he is out of any quarantine. Return instructions provided. Discharge Plan Triage Chief Complaint: General Illness ED Provider: Nora Brenner Dx/Rx/DC Orders Clinical Impression: Viral syndrome Instructions: ED Viral Syndrome (Adult) Prescriptions: No Action (DME) insulin needles (disposable) 30 X 3/4 30 X 3/4 needle See Rx Instructions .ROUTE .MEDSUPPLY Qty: 1 Rx Instructions: As directed (DME) Paul Barillas See Rx Instructions .Route .MEDSUPPLY Qty: 1 0RF Rx Instructions: CPAP SUPPLIES - HOSE, MASK, FILTERS, HARNESS. NEEDS A NEW TANK WELL. insulin glargine [Lantus Solostar U-100 Insulin] 100 unit/mL (3 mL) insulin pen 26 unit subcut QPM Qty: 15 5RF (DME) pen needle, diabetic [Advocate Pen Needle] 33 gauge x 5/32 needle See Rx Instructions .ROUTE .MEDSUPPLY Qty: 200 3RF Rx Instructions: As directed 4 times daily for type 2 DM (DME) lancets [OneTouch Delica Lancets] 30 gauge misc See Rx Instructions .ROUTE .MEDSUPPLY Qty: 200 4RF Rx Instructions: As directed (DME) OneTouch Verio test strips Strip See Rx Instructions .ROUTE .MEDSUPPLY Qty: 100 3RF Rx Instructions: As directed, check glucose QID alcohol swabs [Alcohol Prep Pads] Pads, Medicated 1 pad topical .qid Qty: 200 3RF omeprazole 20 mg capsule,delayed release(DR/EC) 20 mg PO DAILY Qty: 90 1RF clotrimazole-betamethasone 1-0.05 % cream 1 applic TOPICAL BID Qty: 30 1RF medical gummies PO (DME) blood-glucose meter Kit See Rx Instructions .ROUTE .MEDSUPPLY Qty: 1 0RF Rx Instructions: As directed atorvastatin 20 mg tablet 20 mg PO QHS Qty: 90 3RF lisinopril 20 mg tablet 20 mg PO DAILY Qty: 90 3RF insulin lispro 100 unit/mL insulin pen 20 unit SC TIDCM Qty: 15 5RF Primary Care Provider: Geena Paez Referrals: Geena Paez MD [Primary Care Provider] - 1-2 Weeks Disposition Disposition: Home, Self Care
[2023-05-16 09:56] VITALS: BMI 74.2
[2023-05-16 10:25] LABS: Absolute Lymphocyte Count 2.83 X10^3/uL (0.83-4.51); Absolute Neutrophil Count 7.3 X10^3/uL (2.0-7.7); Basophil# 0.03 X10^3/uL; Basophil% 0.3 % (0-1); Eosinophil# 0.08 X10^3/uL; Eosinophils% 0.7 % (0-5); Hematocrit 38.6 % (40-54); Hemoglobin 12.6 g/dL (13.0-16.5); Lymphocyte # 2.83 X10^3/ul (0.83-4.51); Lymphocyte % 25.5 % (19-41); Mean Corp Hgb Conc 32.6 g/dL (32-36); Mean Corpuscular Hgb 29.5 pg (27.0-32.0); Mean Corpuscular Volume 90.4 fL (80-94); Mean Platelet Vol. 10.1 fl (6.2-12.0); Monocyte# 0.83 X10^3/uL; Monocyte% 7.5 % (0-10); NRBC Flagged by Analyzer 0 % (0-5); Neutrophil # 7.27 X10^3/uL (2.7-7.7); Neutrophil % 65.5 % (47-70); Platelet Count 262 K/mm3 (150-450); RBC Distribution Width CV 16.1 % (11.6-14.6); RBC Distribution Width SD 53.4 fl (35.1-43.9); Red Blood Count 4.27 M/mm3 (4.6-6.2); White Blood Count 11.1 K/mm3 (4.4-11.0)
[2023-05-16 10:38] LABS: Anion Gap 2 (5-15); BUN 10 mg/dL (7-18); BUN/Creat Ratio 13.4 RATIO (10-20); Calcium,Total 8.4 mg/dL (8.5-10.1); Chloride 105 mmol/L (98-107); Creatinine, Serum 0.75 mg/dL (0.70-1.30); EST Glomerular Filtration Rate 120 mL/min (>60); Est Glom Filt Rate - Afr Amer 145 mL/min (>60); Estimated Creatinine Clearance 137.96 ml/min; Glucose 112 mg/dL (74-106); Potassium 3.9 mmol/L (3.5-5.1); Sodium Level 139 mmol/L (136-145)
--- NOTE | 2023-05-16 10:45 | RAD_ITS ---
STUDY: X-RAY CHEST REASON FOR EXAM: Male, 42 years old. sob TECHNIQUE: Single AP portable view of the chest. COMPARISON: Comparison is made with prior study dated March 23, 2022. FINDINGS: The lungs are clear and expanded. There is no demonstrated pleural abnormality. Normal size heart. Normal mediastinum and sunita. Normal visualized pulmonary arteries. Normal visualized aortic arch and descending thoracic aorta. Normal visualized thoracic spine. Normal visualized ribs, clavicles, and shoulders. There is no demonstrated abnormality of the visualized soft tissue structures of the upper abdomen. RAD/Chest 1 View (Portable) IMPRESSION: Normal x-ray examination of the chest. Electronically Signed: Carlyle Colón MD at 11:02 [facility] ,
[2023-05-16 11:10] VITALS: BP 120/82; TEMP -7.7; TEMP 18
== END 2023-05-16 11:12 | disposition home or self-care (01) ==
LOC: ED 11:03
PROVIDERS: Emergency Provider Emergency Medicine; PCP Internal Medicine; Visit Provider Emergency Medicine
DX: B34.9 Viral infection, unspecified (principal); E11.9 Type 2 diabetes mellitus without complications; Z79.4 Long term (current) use of insulin; E78.5 Hyperlipidemia, unspecified; I10 Essential (primary) hypertension; R06.02 Shortness of breath; F17.210 Nicotine dependence, cigarettes, uncomplicated; Z79.899 Other long term (current) drug therapy
CPT/HCPCS: 71045; 80048; 85025; 99284